=== PATIENT | female | born 1955 | race African-American/Black ===

== ENCOUNTER 2016-10-09 19:04 | Inpatient (IN) ==
[2016-10-09] MEDS ORDERED: SODIUM CHLORIDE 0.9% 1,000 ML IV STA (19:53)
[2016-10-09] MEDS ORDERED: cefTRIAXone 1,000 MG in SODIUM CHLORIDE 0.9% 100 ML IV STA (19:57)
[2016-10-09 20:04] LABS: Hematocrit 34.8 VOL% (35.7-47.0); Hemoglobin 11.6 GM/DL (12.0-16.0); Immature Granulocytes % 0.8 %; Immature Granulocytes Absolute 0.02 #; Lymphocytes # 0.8 10*3/uL (1.4-4.0); Mean Corpuscular HGB Conc 33.3 GM/DL (32-36); Mean Corpuscular Hemoglobin 27 PG (27-34); Mean Corpuscular Volume 80.9 FL (87-102); Mean Platelet Volume 11.3 FL (9.6-12.0); Monocytes # 0.1 10*3/uL (0.11-0.8); Neutrophils # 1.7 10*3/uL (1.4-7.4); Neutrophils % 65.2 % (38.7-73.9); Platelet Count 219 T/CUMM (130-400); White Blood Count 2.6 T/CUMM (4-12)
--- NOTE | 2016-10-09 20:16 | XRay Report ---
XR chest 1V portable Indication: Cough, shortness of breath Comparison: 11 December 2010 Findings: The heart and mediastinum are stable in size and configuration. The pulmonary vascularity is increased with bilateral increased interstitial lung density. Additional increased alveolar densities present most prominent in the right lower lung. No other lung infiltrates, effusions, pneumothorax or other abnormality is demonstrated. Impression: Findings suggest cardiac decompensation. Right lower lung pneumonia cannot be excluded. PROCEDURE INTERPRETED AT [facility] DEPARTMENT OF RADIOLOGY Final Report Signed by: Dr. Ruben Cage
--- NOTE | 2016-10-09 20:17 | XRay Report ---
XR KUB Indication: Abdominal pain Comparison: 02 January 2011 Findings: No free fluid or free air seen. The bowel gas pattern appears within normal limits. No abnormal calcifications are present. No other abnormality is identified. Impression: No evidence of abnormality demonstrated PROCEDURE INTERPRETED AT [facility] DEPARTMENT OF RADIOLOGY Final Report Signed by: Dr. Ruben Cage
[2016-10-09 20:23] LABS: Alanine Aminotransferase 13 U/L (13-56); Alkaline Phosphatase 111 U/L (45-117); Amylase 75 U/L (25-115); Aspartate Amino Transferase 20 U/L (0-37); Bilirubin,Total < 0.39 MG/DL (0.2-1.0); Blood Urea Nitrogen 14 MG/DL (7-18); Free T4 (Free Thyroxine) 0.93 NG/DL (0.76-1.46); Glucose 131 MG/DL (74-106); Magnesium 1.5 MG/DL (1.8-2.4); Potassium 3.8 MMOL/L (3.5-5.1); Sodium 143 MMOL/L (136-145)
[2016-10-09] MEDS ORDERED: SODIUM CHLORIDE 0.9% 100 ML IV ONE (20:38)
[2016-10-09] MEDS ORDERED: cefTRIAXone 1,000 MG VIAL ONE (20:38)
[2016-10-09] MEDS ORDERED: ACETAMINOPHEN 500 MG TABLET PO ONE (21:00)
[2016-10-09 21:07] LABS: Apearance,Urine CLEAR (Clear); Bilirubin,Urine Negative (Negative); Blood, Urine Negative (Negative); Glucose,Urine (UA) 50 mg/dL (Negative); Ketones,Urine Negative (Negative); Mucus,Urine Occasional /LPF (Occasional); Nitrite,Urine Negative (Negative); Protein,Urine Negative; RBC,Urine <1 /HPF (0-4); Squamous Epithelial Cell,Urine Occasional /HPF (0-10); Urine Color Yellow (Yellow); Urine Specific Gravity 1.009 (1.001-1.035); Urine Urobilinogen < 2.0 EU/DL (0.2-1.0); WBC,Urine 1 /HPF (0-6)
[2016-10-09] MEDS ORDERED: ACETAMINOPHEN 500 MG TABLET ONE (21:27)
--- NOTE | 2016-10-09 21:28 | Emergency Department Note ---
Arrival - Arrival Chief Complaint: Abdominal / Flank Pain Stated Complaint: body aches and elevated temps ED Nursing Triage Note: nausea, weakness, fever, abdominal pain Mode of Arrival: Stretcher Limitations: No Limitations Source: Patient, Family Time Seen by Provider: 10/09/16 19:27 - History of Present Illness HPI Narrative: The patient complains of shortness of breath, nausea, weakness, fever, cough and upper abdominal pain since around 130 this afternoon. She denies any chest pain, vomiting or diaphoresis. No nasal drainage or sore throat. She has a history of hypertension, diabetes and hyperthyroidism. No known history of heart problems. No known sick contacts. Allergies/Adverse Reactions: Allergies Allergy/AdvReac Type Severity Reaction Status Date / Time Benzonatate Allergy Intermediate Swelling Verified 05/13/16 06:59 [From [place]] of Lip/Tongue/Throat codeine Allergy Intermediate Swelling Verified 05/13/16 06:59 of Lip/Tongue/Throat amlodipine Allergy Swelling Verified 05/13/16 06:59 of Lip/Tongue/Throat benazepril Allergy Swelling Verified 05/13/16 06:59 of Lip/Tongue/Throat gabapentin [From Neurontin] Allergy Swelling Verified 05/13/16 06:59 of Lip/Tongue/Throat metoclopramide [From Reglan] Allergy Verified 07/22/16 09:12 metronidazole [From Flagyl] Allergy Swelling Verified 05/13/16 06:59 of Lip/Tongue/Throat tramadol [From Ultram] Allergy Swelling Verified 05/13/16 06:59 of Lip/Tongue/Throat Home Medications: Home Medications Medication Instructions Recorded Confirmed Type Atenolol [Atenolol] 1 tablet PO DAILY 09/12/14 10/09/16 History Cetirizine Tab [ZyrTEC TAB] 10 mg PO BID 09/12/14 10/09/16 History Spironolactone [Aldactone] 25 mg PO BID 09/12/14 10/09/16 History sitaGLIPtin [Januvia] 100 mg PO DAILY 09/12/14 10/09/16 History HydrOXYzine PAMOATE CAP [Vistaril 25 mg PO TID PRN 03/17/16 10/09/16 History Cap] Pregabalin [Lyrica] 150 mg PO TID 03/17/16 10/09/16 History Cyanocobalamin (Vitamin B-12) 1,000 mcg PO DAILY 07/22/16 10/09/16 History [Vitamin B-12] Folic Acid Tab 0.4 mg PO DAILY 08/18/16 10/09/16 History Linagliptin [Tradjenta] 5 mg PO QAM 08/18/16 10/09/16 History Potassium Chloride 20 meq PO DAILY 08/18/16 10/09/16 History Amoxicillin Cap/Tab 500 mg PO Q6H 10/09/16 10/09/16 History Celecoxib [Celebrex] 200 mg PO BID 10/09/16 10/09/16 History Cetirizine HCl [Cetirizine Tab] 10 mg PO DAILY 10/09/16 10/09/16 History Esomeprazole Magnesium [Nexium] 40 mg PO DAILY 10/09/16 10/09/16 History Fluoxetine HCl 40 mg PO BID 10/09/16 10/09/16 History Insulin Aspart [NovoLOG FlexPen] 20 unit SUBCUT TID 10/09/16 10/09/16 History Insulin Glargine,Hum.rec.anlog 25 unit SUBCUT QPM 10/09/16 10/09/16 History [Lantus SoloStar] Insulin Glargine,Hum.rec.anlog 45 unit SUBCUT QAM 10/09/16 10/09/16 History [Lantus SoloStar] Levothyroxine Tab [Synthroid Tab] 100 mcg PO QAM 10/09/16 10/09/16 History Multivit-Min/FA/Lycopen/Lutein 1 each PO DAILY 10/09/16 10/09/16 History [Centrum Silver Tablet] Simvastatin 20 mg PO QPM 10/09/16 10/09/16 History Review of System - Review of System Constitutional: Present: fever, weakness Head/Ears/Nose/Throat: Absent: nasal drainage, sore throat Respiratory: Present: cough, respiratory distress. Absent: wheezing Cardiovascular: Present: dyspnea on exertion. Absent: chest pain, palpitations , orthopnea, edema Gastrointestinal: Present: abdominal pain, nausea. Absent: vomiting, diarrhea, constipation Genitourinary female: Absent: dysuria Medical,Surgical,& Family Hx - Medical History Cardio: History of: Hypertension Psychological: History of: Anxiety Disorders, Depression Neurology: History of: Migraine, Peripheral Neuropathy HEENT: History of: Eye Problem (glasses/Cataracts), Dental Problems (Missing Teeth), HEENT Problems (Allergies) Endocrine: History of: Diabetes Mellitus (IDDM), Diabetes Mellitus (NIDDM), Dyslipidemia, Thyroid Disorder Rheumatology: History of;: Rheumatoid Arthritis Respiratory: History of: Respiratory Problems (sob; Flu Vac Nov 2015) No history of: Pneumonia (Hx Pneum Vac) Genitourinary: No history of: Kidney Stones Gastrointestinal: History of: GERD No history of: Polyps Musculoskeletal: History of: Back/Neck Problems (Lower Back Pain Radiating down Rt leg-Dr. Archuleta-Hx Steroid Injections), Degenerative Disk Disease, Musculoskeletal Problems (arthritis; Dr. Corona Jr Injections in Shoulder) Reproductive: No history of: Breast Cancer Other: No history of: Anesthesia Reactions, Anaphylaxis, Cancer - Surgical History Cardiac Surgeries: Patient Denies: Cardiac Catheterization HEENT Surgeries: Surgical HX of: Eye Surgery (03/18/16 Lt Cataract; 05/13/16 Sched for Rt Cataract Dr. Low) Patient denies: Thyroid Surgery, Tonsilectomy & Adenoidectomy Abdominal Surgeries: Surgical HX of: Colonoscopy, EGD Patient denies: Appendectomy, Cholecystectomy Reproductive Surgeries: Surgical HX of;: Gynecologic Surgery, Hysterectomy ( Complete) Orthopedic Surgeries: Surgical HX of;: Orthopedic Surgery (LKS) Patient denies;: Total Hip Replacement, Total Knee Replacement - Family History Family History: Reports;: Family Diabetes - Social History Smoking Status: Never smoker Frequency of Alcohol Use: None Type of Drug Use: None Exam Physical Examination: GENERAL: Alert. No acute distress. HEENT: Normocephalic and atraumatic. There is no nasal drainage. No pharyngeal erythema or exudate. NECK: Normal inspection. Supple. No lymphadenopathy or meningismus. LUNGS: No respiratory distress. Good air movement. Rales and coarse breath sounds bilaterally. Right greater than left. HEART: Regular rate and rhythm. ABDOMEN: Soft, nondistended with normal bowel sounds. Minimal epigastric tenderness without guarding or rebound. BACK: Normal inspection. SKIN: Color normal. Warm and dry. EXTREMITIES: Nontender. Normal range of motion. No pedal edema. NEUROLOGICAL/PSYCHIATRIC: Alert and oriented -3 with normal mood and affect. Cranial nerves normal. No motor or sensory deficit. Vital Signs: Vital Signs Temperature 103.0 F H 10/09/16 19:10 Pulse Rate 105 H 10/09/16 19:31 Respiratory Rate 20 10/09/16 19:31 Blood Pressure 106/58 10/09/16 19:31 O2 Sat by Pulse Oximetry 94 L 10/09/16 19:31 Course Course Narrative: Note: The multiple negatives in the past medical history were not marked by me. They are the result of the triage process, past medical records or other unknown causes. Due to time constraints, these were not all reviewed with the patient and the backslashes were not removed from the chart. They should be ignored. - Reevaluation(s) Reevaluation #1: Patient has remained stable in the ER. Her oxygen saturations remain around 93% . I discussed patient with Dr. Riggins and will admit to Dr. Vasquez. Time: 21:41 Results - Labs CBC & BMP: 10/09/16 19:24 10/09/16 19:24 Lab Results: I have reviewed the patients labs Labs: Laboratory Tests 10/09/16 10/09/16 10/09/16 19:24 19:24 19:53 Lactic Acid 3.0 H Calcium 8.0 L Magnesium 1.5 L Total Bilirubin < 0.39 AST 20 ALT 13 Alkaline Phosphatase 111 B-Natriuretic Peptide 14 Amylase 75 Lipase 150.0 Free T4 0.93 TSH 3rd Generation 2.720 Urine RBC <1 Urine WBC 1 - Impressions KUB shows no acute abnormality. Chest x-ray shows increased density in the right lower lobe consistent with pneumonia. Disposition Clinical Impression: Pneumonia Case discussed with: patient, patient's family Disposition: Still a Patient Condition: Stable Time of Disposition: 21:41
[2016-10-09] MEDS ORDERED: DEXTROSE 50% 25 GM/50 ML VIAL IV PRN (22:33)
[2016-10-09] MEDS ORDERED: PROMETHAZINE 25 MG/1 ML VIAL IM PRN (22:33)
[2016-10-09] MEDS ORDERED: GLUCAGON 1 MG VIAL IM PRN (22:33)
[2016-10-09] MEDS ORDERED: ONDANSETRON 4 MG/2 ML VIAL IV PRN (22:33)
[2016-10-09] MEDS: SODIUM CHLORIDE 0.9% 1,000 ML IV SCH (23:30)
[2016-10-09] MEDS: IBUPROFEN 600 MG TABLET PO PRN (23:42)
[2016-10-10] MEDS: ALBUTEROL/IPRATROPIUM 3 ML NEB RESP TX SCH ×4 (00:38→20:14)
[2016-10-10] MEDS: DOCUSATE SODIUM 100 MG CAPSULE PO SCH ×2 (08:44→20:56)
[2016-10-10] MEDS: PANTOPRAZOLE 40 MG TABLET PO SCH (08:44)
[2016-10-10] MEDS: LEVOFLOXACIN INJ 750 MG in PREMIX 1 EACH IV SCH (08:46)
--- NOTE | 2016-10-10 10:10 | Internal Med History&Physical ---
Assessment and Plan (1) Right lower lobe pneumonia Status: Acute Assessment and plan: 61-year-old female admitted to acute care * Right lower lobe pneumonia. Patient will be started on IV antibiotics and nebulizer treatments. Blood cultures have been done. Her white count was low on admission. Could be a viral pneumonia. Will repeat chest x-ray CBC and BMP in the morning * Diabetes. Will keep her on medications and start her on sliding scale * Hypertension. Blood pressure is stable * No history of CHF. Will decrease her IV fluids to 75 cc an hour and will check a BNP in the morning * Hypothyroidism. Continue current treatment. * Depression. She will be continued on medications. * Discussed with patient. Dr. Vasquez will see the patient in the morning Current Visit: Yes (2) Hypertension Status: Acute Current Visit: Yes (3) Diabetes Status: Acute Current Visit: Yes (4) Chronic back pain Status: Acute Current Visit: Yes (5) Dyslipidemia Status: Acute Current Visit: Yes (6) Anxiety and depression Status: Acute Current Visit: Yes (7) Peripheral neuropathy Status: Acute Current Visit: Yes History of Present Illness Chief complaint: Shortness of breath and fever History of present illness: Ms. Oquendo is a 61 year old female with history of diabetes, hypertension, chronic pain syndrome, depression, hypothyroidism, hyperlipidemia who presented to the emergency room with shortness of breath associated with fever weakness, nausea for last 24 hours. Patient denies any dysuria. She had an injection in her back last week. She denies any chest discomfort or history of heart disease. Her shortness of breath was associated with wheezing. She was coughing up dark phlegm. In the emergency room patient had a temp of 103. She lives at home with her son. She denies any history of smoking or alcohol use. Her blood sugars have been running high. Home Medications Medication Instructions Recorded Confirmed Type Atenolol [Atenolol] 1 tablet PO DAILY 09/12/14 10/09/16 History Cetirizine Tab [ZyrTEC TAB] 10 mg PO BID 09/12/14 10/09/16 History Spironolactone [Aldactone] 25 mg PO BID 09/12/14 10/09/16 History sitaGLIPtin [Januvia] 100 mg PO DAILY 09/12/14 10/09/16 History HydrOXYzine PAMOATE CAP [Vistaril 25 mg PO TID PRN 03/17/16 10/09/16 History Cap] Pregabalin [Lyrica] 150 mg PO TID 03/17/16 10/09/16 History Cyanocobalamin (Vitamin B-12) 1,000 mcg PO DAILY 07/22/16 10/09/16 History [Vitamin B-12] Folic Acid Tab 0.4 mg PO DAILY 08/18/16 10/09/16 History Linagliptin [Tradjenta] 5 mg PO QAM 08/18/16 10/09/16 History Potassium Chloride 20 meq PO DAILY 08/18/16 10/09/16 History Amoxicillin Cap/Tab 500 mg PO Q6H 10/09/16 10/09/16 History Celecoxib [Celebrex] 200 mg PO BID 10/09/16 10/09/16 History Cetirizine HCl [Cetirizine Tab] 10 mg PO DAILY 10/09/16 10/09/16 History Esomeprazole Magnesium [Nexium] 40 mg PO DAILY 10/09/16 10/09/16 History Fluoxetine HCl 40 mg PO BID 10/09/16 10/09/16 History Insulin Aspart [NovoLOG FlexPen] 20 unit SUBCUT TID 10/09/16 10/09/16 History Insulin Glargine,Hum.rec.anlog 25 unit SUBCUT QPM 10/09/16 10/09/16 History [Lantus SoloStar] Insulin Glargine,Hum.rec.anlog 45 unit SUBCUT QAM 10/09/16 10/09/16 History [Lantus SoloStar] Levothyroxine Tab [Synthroid Tab] 100 mcg PO QAM 10/09/16 10/09/16 History Multivit-Min/FA/Lycopen/Lutein 1 each PO DAILY 10/09/16 10/09/16 History [Centrum Silver Tablet] Simvastatin 20 mg PO QPM 10/09/16 10/09/16 History Allergies Allergy/AdvReac Type Severity Reaction Status Date / Time Benzonatate Allergy Intermediate Swelling Verified 05/13/16 06:59 [From [place]] of Lip/Tongue/Throat codeine Allergy Intermediate Swelling Verified 05/13/16 06:59 of Lip/Tongue/Throat amlodipine Allergy Swelling Verified 05/13/16 06:59 of Lip/Tongue/Throat benazepril Allergy Swelling Verified 05/13/16 06:59 of Lip/Tongue/Throat gabapentin [From Neurontin] Allergy Swelling Verified 05/13/16 06:59 of Lip/Tongue/Throat metoclopramide [From Reglan] Allergy Verified 07/22/16 09:12 metronidazole [From Flagyl] Allergy Swelling Verified 05/13/16 06:59 of Lip/Tongue/Throat tramadol [From Ultram] Allergy Swelling Verified 05/13/16 06:59 of Lip/Tongue/Throat Medical,Surgical,& Family Hx - Medical History Cardio: History of: Hypertension Psychological: History of: Anxiety Disorders, Depression Neurology: History of: Migraine, Peripheral Neuropathy No history of: Seizures HEENT: History of: Eye Problem (glasses/Cataracts), Dental Problems (Missing Teeth), HEENT Problems (Allergies) Endocrine: History of: Diabetes Mellitus (NIDDM), Dyslipidemia, Thyroid Disorder Rheumatology: History of;: Rheumatoid Arthritis Respiratory: History of: Respiratory Problems (sob; Flu Vac Nov 2015) No history of: Pneumonia (Hx Pneum Vac) Genitourinary: No history of: Kidney Stones Gastrointestinal: History of: GERD No history of: Polyps Musculoskeletal: History of: Back/Neck Problems (Lower Back Pain Radiating down Rt leg-Dr. Archuleta-Hx Steroid Injections), Degenerative Disk Disease (Chronic low back pain. Followed by Dr. Archuleta), Musculoskeletal Problems (arthritis; Dr. Corona Jr Injections in Shoulder) Reproductive: No history of: Breast Cancer Other: No history of: Anesthesia Reactions, Anaphylaxis, Cancer - Surgical History Cardiac Surgeries: Patient Denies: Cardiac Catheterization HEENT Surgeries: Surgical HX of: Eye Surgery (03/18/16 Lt Cataract; 05/13/[address] Sched for Rt Cataract Dr. Low) Patient denies: Thyroid Surgery, Tonsilectomy & Adenoidectomy Abdominal Surgeries: Surgical HX of: Colonoscopy, EGD Patient denies: Appendectomy, Cholecystectomy Reproductive Surgeries: Surgical HX of;: Gynecologic Surgery, Hysterectomy ( Complete) Orthopedic Surgeries: Surgical HX of;: Orthopedic Surgery (LKS) Patient denies;: Total Hip Replacement, Total Knee Replacement Additional Surgical History: Bilateral carpal tunnel surgery - Family History Family History: Reports;: Family Diabetes - Social History Smoking Status: Never smoker Frequency of Alcohol Use: None Type of Drug Use: None Marital Status: Single Lives With:: Children (Her son) 12 point system: reviewed and no additional remarkable complaints except as stated (As mentioned in HPI) Exam - Constitutional Vitals: Period Temp Pulse Resp BP Sys/Araujo Pulse Ox Last 24 Hr 97.7 F-103.0 F 84-109 18-22 86-129/45-92 90-99 Exam: Examination: GENERAL: NAD. HEENT: PERRLA. EOMI. Mucous membranes are moist. NECK: Neck is supple. No JVD. No carotid bruit. No thyromegaly. CVS: Regular rate and rhythm. S1 and S2 are normal. RESPIRATORY: Decreased air entry especially at the right base with bilateral rales. Few rhonchi are present bilaterally but especially in the right base ABDOMEN: Soft and nontender. Bowel sounds are present. No hepatosplenomegaly. EXT: No edema. Peripheral pulses are present. [employer]FF[employer] CONTROL SPECIALIST: Patient is awake, alert and oriented to time place and person. Cranial nerves II through XII are grossly intact. Moving both upper and lower extremities fairly SKIN: Warm and dry. MSK: No obvious deformity. Results - Labs CBC & BMP: 10/09/16 19:24 10/09/16 19:24 Lab Results: I have reviewed the past 24 hour labs
[2016-10-10] MEDS ORDERED: HydrOXYzine PAMOATE 25 MG CAPSULE PO PRN (10:18)
[2016-10-10] MEDS ORDERED: DEXTROSE 50% 25 GM/50 ML VIAL IV PRN (10:24)
[2016-10-10] MEDS ORDERED: GLUCAGON 1 MG VIAL IM PRN (10:24)
[2016-10-10] MEDS: sitaGLIPtin 100 MG TABLET PO SCH (13:39)
[2016-10-10] MEDS: POTASSIUM CHLORIDE 20 MEQ TABLET PO SCH (13:39)
[2016-10-10] MEDS: ATENOLOL 50 MG TABLET PO SCH (13:39)
[2016-10-10] MEDS: INSULIN GLARGINE 100 UNIT/ML SUBCUT SCH ×2 (13:40→18:50)
[2016-10-10] MEDS: ACETAMINOPHEN 325 MG TABLET PO PRN (13:59)
[2016-10-10] MEDS: INSULIN LISPRO 100 UNIT/ML SUBCUT SCH ×5 (14:02→20:55)
[2016-10-10] MEDS: PREGABALIN 75 MG CAPSULE PO SCH ×2 (15:05→20:55)
[2016-10-10] MEDS: SIMVASTATIN 20 MG TABLET PO SCH (18:50)
[2016-10-10] MEDS: IBUPROFEN 600 MG TABLET PO PRN (20:55)
[2016-10-10] MEDS: FLUoxetine 20 MG CAPSULE PO SCH (20:56)
[2016-10-10] MEDS: SPIRONOLACTONE 25 MG TABLET PO SCH (20:56)
[2016-10-10] MEDS: SODIUM CHLORIDE 0.9% 1,000 ML IV SCH (23:07)
[2016-10-11] MEDS: ALBUTEROL/IPRATROPIUM 3 ML NEB RESP TX SCH ×3 (01:19→12:47)
[2016-10-11 06:41] LABS: Basophils % 0.4 % (0.0-0.8); Hematocrit 27.7 VOL% (35.7-47.0); Immature Granulocytes % 3.8 %; Immature Granulocytes Absolute 0.36 #; Lymphocytes # 1.6 10*3/uL (1.4-4.0); Lymphocytes % 16.5 % (21.3-54.2); Mean Corpuscular HGB Conc 33.9 GM/DL (32-36); Mean Corpuscular Hemoglobin 27 PG (27-34); Mean Corpuscular Volume 79.8 FL (87-102); Mean Platelet Volume 11.4 FL (9.6-12.0); Monocytes # 0.3 10*3/uL (0.11-0.8); Monocytes % 3.4 % (1.7-12.7); Neutrophils # 7.2 10*3/uL (1.4-7.4); Neutrophils % 75.9 % (38.7-73.9); Red Blood Count 3.47 MC/CUMM (3.8-5.5); Red Cell Distribution Width 16.4 % (9.3-17.3)
[2016-10-11 06:43] LABS: Hemoglobin 9.4 GM/DL (12.0-16.0); White Blood Count 9.5 T/CUMM (4-12)
[2016-10-11 06:44] LABS: Platelet Count 285 T/CUMM (130-400)
[2016-10-11 06:56] LABS: Calcium 8.6 MG/DL (8.5-10.1); Osmolality,Calculated 288.8 MOS/KG (273-304); Potassium 4.2 MMOL/L (3.5-5.1)
[2016-10-11 06:59] LABS: Band Neutrophils 9 % (0-10); Hypochromasia 1+; Lymphocytes 17 % (20-55); Metamyelocytes 1 %; Myelocytes 1 %; Segmented Neutrophils 70 % (50-85); Total Cells Counted 100
[2016-10-11 07:00] LABS: Microcytosis 1+
[2016-10-11] MEDS: INSULIN LISPRO 100 UNIT/ML SUBCUT SCH ×7 (08:05→20:50)
[2016-10-11] MEDS: ATENOLOL 50 MG TABLET PO SCH (08:06)
[2016-10-11] MEDS: FLUoxetine 20 MG CAPSULE PO SCH ×2 (08:07→21:08)
[2016-10-11] MEDS: LEVOTHYROXINE 100 MCG TABLET PO SCH (08:07)
[2016-10-11] MEDS: PANTOPRAZOLE 40 MG TABLET PO SCH (08:08)
[2016-10-11] MEDS: PREGABALIN 75 MG CAPSULE PO SCH ×3 (08:08→21:07)
[2016-10-11] MEDS: INSULIN GLARGINE 100 UNIT/ML SUBCUT SCH ×2 (08:08→18:30)
[2016-10-11] MEDS: POTASSIUM CHLORIDE 20 MEQ TABLET PO SCH (08:09)
[2016-10-11] MEDS: DOCUSATE SODIUM 100 MG CAPSULE PO SCH ×2 (08:09→21:08)
[2016-10-11] MEDS: sitaGLIPtin 100 MG TABLET PO SCH (08:09)
[2016-10-11] MEDS: FOLIC ACID 0.4 MG TABLET PO SCH (08:09)
[2016-10-11] MEDS: LEVOFLOXACIN INJ 750 MG in PREMIX 1 EACH IV SCH (08:10)
[2016-10-11] MEDS: SPIRONOLACTONE 25 MG TABLET PO SCH (08:10)
[2016-10-11] MEDS: MULTIVITAMIN (CENTRUM) TABLET PO SCH (08:10)
[2016-10-11] MEDS: CYANOCOBALAMIN 500 MCG TABLET PO SCH (08:11)
[2016-10-11] MEDS: CETIRIZINE 10 MG TABLET PO SCH (08:11)
[2016-10-11] MEDS ORDERED: PANTOPRAZOLE 40 MG TABLET PO SCH (09:00)
--- NOTE | 2016-10-11 10:49 | XRay Report ---
XR chest 2V Indication: Pneumonia Comparison: 09 October 2016 Findings: The heart and mediastinum are similar in size and configuration. The pulmonary vascularity is normal in caliber. There is increasing bilateral lung pulmonary infiltrates especially on the right . Impression: Increasing bilateral pulmonary infiltrates, suggesting worsening pneumonia. PROCEDURE INTERPRETED AT [facility] DEPARTMENT OF RADIOLOGY Final Report Signed by: Dr. Ruben Cage
[2016-10-11] MEDS: SODIUM CHLORIDE 0.9% 1,000 ML IV SCH (12:57)
[2016-10-11] MEDS: SODIUM CHLORIDE 0.45% 1,000 ML IV SCH (14:04)
[2016-10-11] MEDS: IBUPROFEN 600 MG TABLET PO PRN (14:29)
[2016-10-11] MEDS: ACETAMINOPHEN 325 MG TABLET PO PRN (17:04)
--- NOTE | 2016-10-11 18:13 | Internal Med Progress Note ---
Assessment and Plan (1) Right lower lobe pneumonia Status: Acute Current Visit: Yes (2) Hypertension Status: Chronic Current Visit: Yes Qualifiers: Hypertension type: essential hypertension Qualified Code(s): I10 - Essential (primary) hypertension (3) Diabetes Status: Chronic Current Visit: Yes Qualifiers: Diabetes mellitus type: type 2 Diabetes mellitus complication status: with neurologic complications Diabetes mellitus complication detail: with polyneuropathy Diabetes mellitus keno terminal operator insulin use: with keno terminal operator use Qualified Code(s): E11.42 - Type 2 diabetes mellitus with diabetic polyneuropathy; Z79.4 - medical terminologist (current) use of insulin (4) Peripheral neuropathy Status: Chronic Current Visit: Yes Qualifiers: Peripheral neuropathy type: polyneuropathy associated with underlying disease Qualified Code(s): G63 - Polyneuropathy in diseases classified elsewhere Internal Medicine - PN: Subj Interval history: This is a 61 year old female with history of HTN, arthritic changes and chronic pain, DM, peripheral neuropathy, dyslipidemia, who presented to ER with shortness of breath and malaise. She was found to have RLL pneumonia. Chest x- ray shows worsening of infiltrate/consolidation and antibiotics were changed as well as adjustments in breathing treatments. Solumedrol added along with adjustments in insulin coverage. Exam (Progress Note) - Constitutional Vitals: Period Temp Pulse Resp BP Sys/Araujo Pulse Ox Last 24 Hr 97.4 F-101.5 F 72-109 18-26 102-165/47-99 88-99 General appearance: no acute distress - Head Head exam: Present: normocephalic - Eye Eye exam: Present: EOMI - Respiratory Respiratory exam: Present: decreased breath sounds (diminished air flow), prolonged expiratory phase, rhonchi (scattered) - Cardiovascular Cardiovascular exam: Present: regular rate and rhythm - GI/Abdominal GI/Abdominal exam: Present: normal bowel sounds, soft. Absent: tenderness - Extremities Exam Extremities exam: Absent: edema - Neurological Exam Neurological exam: Present: alert, oriented X3 - Psychiatric Psychiatric exam: Present: normal mood - Skin Skin exam: Present: warm, dry Results - Labs CBC & BMP: 10/11/16 05:59 10/11/16 05:59 - Diagnostic Findings Procedure: Chest x-ray: report reviewed by me, image reviewed by me
[2016-10-11] MEDS: SIMVASTATIN 20 MG TABLET PO SCH (18:20)
[2016-10-11] MEDS ORDERED: MAGNESIUM SULF RIDER 2 GM in PREMIX 1 EACH IV ONE (18:28)
[2016-10-11] MEDS ORDERED: ALBUTEROL/IPRATROPIUM 3 ML NEB RESP TX PRN (18:47)
[2016-10-11] MEDS ORDERED: ALBUTEROL/IPRATROPIUM 3 ML NEB RESP TX SCH ×2 (19:00)
[2016-10-11] MEDS ORDERED: AZITHROMYCIN INJ 250 MG in SODIUM CHLORIDE 0.9% 250 ML IV SCH (19:00)
[2016-10-11] MEDS ORDERED: AZITHROMYCIN INJ 500 MG in SODIUM CHLORIDE 0.9% 250 ML IV SCH (19:00)
[2016-10-11] MEDS: BUDESONIDE 0.25 MG/2 ML NEB RESP TX SCH (19:27)
[2016-10-11] MEDS: methylPREDNISolone SOD SUC 40 MG/1 ML VIAL IV SCH (20:14)
[2016-10-11] MEDS: cefTRIAXone 1,000 MG in SODIUM CHLORIDE 0.9% 100 ML IV SCH (20:15)
[2016-10-11] MEDS: MONTELUKAST 10 MG TABLET PO SCH (21:08)
[2016-10-11] MEDS: LEVALBUTEROL 1.25 MG/3 ML NEB RESP TX SCH (23:41)
[2016-10-11] MEDS: IPRATROPIUM 500 MCG/2.5 ML NEB RESP TX SCH (23:41)
[2016-10-12] MEDS: SODIUM CHLORIDE 0.45% 1,000 ML IV SCH ×2 (03:19→20:23)
[2016-10-12] MEDS: methylPREDNISolone SOD SUC 40 MG/1 ML VIAL IV SCH ×3 (03:19→22:44)
[2016-10-12] MEDS: LEVALBUTEROL 1.25 MG/3 ML NEB RESP TX SCH ×6 (03:39→23:31)
[2016-10-12] MEDS: IPRATROPIUM 500 MCG/2.5 ML NEB RESP TX SCH ×6 (03:39→23:31)
[2016-10-12 06:34] LABS: Basophils % 0.2 % (0.0-0.8); Hematocrit 28.4 VOL% (35.7-47.0); Hemoglobin 9.6 GM/DL (12.0-16.0); Immature Granulocytes % 1.4 %; Immature Granulocytes Absolute 0.17 #; Lymphocytes # 0.6 10*3/uL (1.4-4.0); Mean Corpuscular HGB Conc 33.8 GM/DL (32-36); Mean Corpuscular Hemoglobin 27 PG (27-34); Mean Corpuscular Volume 79.8 FL (87-102); Monocytes # 0.3 10*3/uL (0.11-0.8); Monocytes % 2.8 % (1.7-12.7); Neutrophils # 11.1 10*3/uL (1.4-7.4); Neutrophils % 90.6 % (38.7-73.9); Platelet Count 297 T/CUMM (130-400); Red Blood Count 3.56 MC/CUMM (3.8-5.5); Red Cell Distribution Width 16.6 % (9.3-17.3); White Blood Count 12.3 T/CUMM (4-12)
[2016-10-12] MEDS: BUDESONIDE 0.25 MG/2 ML NEB RESP TX SCH ×2 (06:46→20:16)
[2016-10-12 06:56] LABS: Band Neutrophils 1 % (0-10); Lymphocytes 8 % (20-55); Segmented Neutrophils 87 % (50-85); Total Cells Counted 100
[2016-10-12 06:57] LABS: Giant Platelets Few; Hypochromasia 1+; Microcytosis 1+; Ovalocytes Slight; Platelet Estimate Adequate
[2016-10-12 07:15] LABS: Albumin 2.6 G/DL (3.4-5.0); Calcium 8.9 MG/DL (8.5-10.1); Potassium 5.7 MMOL/L (3.5-5.1); Total Protein 6.7 G/DL (6.4-8.3)
--- NOTE | 2016-10-12 09:14 | Pulmonology Consult Note ---
Assessment and Plan (1) Chronic back pain Status: Acute Assessment and plan: The patient is relatively comfortable at present. Current Visit: Yes (2) Right lower lobe pneumonia Status: Acute Assessment and plan: Patient comes in with a right lower lobe pneumonia and fever. She will be covered with broad-spectrum antibiotics. Current Visit: Yes (3) Diabetes Status: Chronic Assessment and plan: Patient's glucose is up a little on steroids. Current Visit: Yes Qualifiers: Diabetes mellitus type: type 2 Diabetes mellitus complication status: with neurologic complications Diabetes mellitus complication detail: with polyneuropathy Diabetes mellitus intermodal dispatcher insulin use: with mcc use Qualified Code(s): E11.42 - Type 2 diabetes mellitus with diabetic polyneuropathy; Z79.4 - intermodal dispatcher (current) use of insulin (4) Hypertension Status: Chronic Assessment and plan: The patient has hypertensive cardiovascular disease. She does have a large heart and will check an echocardiogram. Current Visit: Yes Qualifiers: Hypertension type: essential hypertension Qualified Code(s): I10 - Essential (primary) hypertension History of Present Illness Chief complaint: Shortness of breath History of present illness: Ms. Oquendo is a 61 year old black female that apparently has a long history of hypertension and diabetes along with hypothyroidism, hyperlipidemia, and chronic pain problems. She stated that 3 days ago she started having more shortness of breath with some cough and congestion. She has had some fever and chills. She came into the emergency room where she was felt to have right lower lobe pneumonia. She says she is feeling a little better although her x- ray still very abnormal. She says she has never had any lung problems or asthma. She is a lifetime non-smoker. She does not think she has had any heart problems either. She says she is comfortable at present on oxygen. Home Medications Medication Instructions Recorded Confirmed Type Atenolol [Atenolol] 1 tablet PO DAILY 09/12/14 10/09/16 History Cetirizine Tab [ZyrTEC TAB] 10 mg PO BID 09/12/14 10/09/16 History Spironolactone [Aldactone] 25 mg PO BID 09/12/14 10/09/16 History sitaGLIPtin [Januvia] 100 mg PO DAILY 09/12/14 10/09/16 History HydrOXYzine PAMOATE CAP [Vistaril 25 mg PO TID PRN 03/17/16 10/09/16 History Cap] Pregabalin [Lyrica] 150 mg PO TID 03/17/16 10/09/16 History Cyanocobalamin (Vitamin B-12) 1,000 mcg PO DAILY 07/22/16 10/09/16 History [Vitamin B-12] Folic Acid Tab 0.4 mg PO DAILY 08/18/16 10/09/16 History Linagliptin [Tradjenta] 5 mg PO QAM 08/18/16 10/09/16 History Potassium Chloride 20 meq PO DAILY 08/18/16 10/09/16 History Amoxicillin Cap/Tab 500 mg PO Q6H 10/09/16 10/09/16 History Celecoxib [Celebrex] 200 mg PO BID 10/09/16 10/09/16 History Cetirizine HCl [Cetirizine Tab] 10 mg PO DAILY 10/09/16 10/09/16 History Esomeprazole Magnesium [Nexium] 40 mg PO DAILY 10/09/16 10/09/16 History Fluoxetine HCl 40 mg PO BID 10/09/16 10/09/16 History Insulin Aspart [NovoLOG FlexPen] 20 unit SUBCUT TID 10/09/16 10/09/16 History Insulin Glargine,Hum.rec.anlog 25 unit SUBCUT QPM 10/09/16 10/09/16 History [Lantus SoloStar] Insulin Glargine,Hum.rec.anlog 45 unit SUBCUT QAM 10/09/16 10/09/16 History [Lantus SoloStar] Levothyroxine Tab [Synthroid Tab] 100 mcg PO QAM 10/09/16 10/09/16 History Multivit-Min/FA/Lycopen/Lutein 1 each PO DAILY 10/09/16 10/09/16 History [Centrum Silver Tablet] Simvastatin 20 mg PO QPM 10/09/16 10/09/16 History Allergies Allergy/AdvReac Type Severity Reaction Status Date / Time Benzonatate Allergy Intermediate Swelling Verified 05/13/16 06:59 [From [place]] of Lip/Tongue/Throat codeine Allergy Intermediate Swelling Verified 05/13/16 06:59 of Lip/Tongue/Throat amlodipine Allergy Swelling Verified 05/13/16 06:59 of Lip/Tongue/Throat benazepril Allergy Swelling Verified 05/13/16 06:59 of Lip/Tongue/Throat gabapentin [From Neurontin] Allergy Swelling Verified 05/13/16 06:59 of Lip/Tongue/Throat metoclopramide [From Reglan] Allergy Verified 07/22/16 09:12 metronidazole [From Flagyl] Allergy Swelling Verified 05/13/16 06:59 of Lip/Tongue/Throat tramadol [From Ultram] Allergy Swelling Verified 05/13/16 06:59 of Lip/Tongue/Throat - Constitutional Constitutional: Present: chills, fever(s), weight gain - EENT Eyes: Absent: loss of vision Ears: Absent: decreased hearing Nose, mouth and throat: Absent: dysphagia, headache(s), sinus pressure - Cardiovascular Cardiovascular: Present: dyspnea, orthopnea. Absent: chest pain at rest, edema - Respiratory Respiratory: Present: cough, dyspnea, change in phlegm color. Absent: hemoptysis, pain on inspiration - Gastrointestinal Gastrointestinal: Absent: abdominal pain, change in bowel habits, dysphagia, nausea, vomiting - Genitourinary Genitourinary: Absent: difficulty urinating, dysuria, hematuria, urinary frequency - Musculoskeletal Musculoskeletal: Present: arthralgias, back pain. Absent: muscle weakness - Neurological Neurological: Absent: abnormal speech, focal weakness, paresthesias - Psychiatric Psychiatric: Absent: anxiety Exam (Pulmonay) H&P - Constitutional Vitals: Period Temp Pulse Resp BP Sys/Araujo Pulse Ox Last 24 Hr 97.4 F-101.5 F 66-109 18-24 103-165/66-99 90-99 General appearance: mild distress (She looks comfortable but is mildly tachypneic), over weight - Head Head exam: Present: normal inspection, normocephalic - Eye Eye exam: Present: EOMI. Absent: scleral icterus Pupils: Present: RENNY - ENT ENT exam: Present: normal exam - Neck Neck exam: Present: normal inspection. Absent: lymphadenopathy, thyromegaly - Respiratory Respiratory exam: Present: decreased breath sounds, rales (She has crackles in the bases.). Absent: wheezes - Cardiovascular Cardiovascular exam: Present: regular rate and rhythm. Absent: gallop, systolic murmur - GI/Abdominal GI/Abdominal exam: Present: normal bowel sounds, soft. Absent: organomegaly, tenderness - Extremities Exam Extremities exam: Absent: calf tenderness, edema - Neurological Exam Neurological exam: Present: alert, oriented X3, CN II-XII intact - Psychiatric Psychiatric exam: Present: normal affect, normal mood - Skin Skin exam: Present: warm, dry Medical,Surgical,& Family Hx - Medical History Cardio: History of: Hypertension Psychological: History of: Anxiety Disorders, Depression Neurology: History of: Migraine, Peripheral Neuropathy No history of: Seizures HEENT: History of: Eye Problem (glasses/Cataracts), Dental Problems (Missing Teeth), HEENT Problems (Allergies) Endocrine: History of: Diabetes Mellitus (IDDM), Diabetes Mellitus (NIDDM), Dyslipidemia, Thyroid Disorder Rheumatology: History of;: Rheumatoid Arthritis Respiratory: History of: Respiratory Problems (sob; Flu Vac Nov 2015) No history of: Pneumonia (Hx Pneum Vac) Genitourinary: No history of: Kidney Stones Gastrointestinal: History of: GERD No history of: Polyps Musculoskeletal: History of: Back/Neck Problems (Lower Back Pain Radiating down Rt leg-Dr. Archuleta-Hx Steroid Injections), Degenerative Disk Disease (Chronic low back pain. Followed by Dr. Archuleta), Musculoskeletal Problems (arthritis; Dr. Corona Jr Injections in Shoulder) Reproductive: No history of: Breast Cancer Other: No history of: Anesthesia Reactions, Anaphylaxis, Cancer - Surgical History Cardiac Surgeries: Patient Denies: Cardiac Catheterization HEENT Surgeries: Surgical HX of: Eye Surgery (03/18/16 Lt Cataract; 05/13/16 Sched for Rt Cataract Dr. Low) Patient denies: Thyroid Surgery, Tonsilectomy & Adenoidectomy Abdominal Surgeries: Surgical HX of: Colonoscopy, EGD Patient denies: Appendectomy, Cholecystectomy Reproductive Surgeries: Surgical HX of;: Gynecologic Surgery, Hysterectomy ( Complete) Orthopedic Surgeries: Surgical HX of;: Orthopedic Surgery (LKS) Patient denies;: Total Hip Replacement, Total Knee Replacement - Family History Family History: Reports;: Family Diabetes - Social History Smoking Status: Never smoker Frequency of Alcohol Use: None Type of Drug Use: None Results - Labs CBC & BMP: 10/12/16 06:20 10/12/16 06:20 - Diagnostic Findings Procedure: Chest x-ray: image reviewed by me, report reviewed by me (Chest x- ray shows cardiomegaly with some right lower lobe consolidation. There may be some slight changes in the left lung.)
[2016-10-12] MEDS: AZITHROMYCIN INJ 250 MG in SODIUM CHLORIDE 0.9% 250 ML IV SCH (09:49)
[2016-10-12] MEDS: INSULIN LISPRO 100 UNIT/ML SUBCUT SCH ×8 (09:50→21:53)
[2016-10-12] MEDS: INSULIN GLARGINE 100 UNIT/ML SUBCUT SCH ×2 (09:51→21:52)
[2016-10-12] MEDS: FOLIC ACID 0.4 MG TABLET PO SCH (09:53)
[2016-10-12] MEDS: POTASSIUM CHLORIDE 20 MEQ TABLET PO SCH (09:54)
[2016-10-12] MEDS: DOCUSATE SODIUM 100 MG CAPSULE PO SCH ×2 (09:54→21:50)
[2016-10-12] MEDS: FLUoxetine 20 MG CAPSULE PO SCH ×2 (09:54→21:50)
[2016-10-12] MEDS: CYANOCOBALAMIN 500 MCG TABLET PO SCH (09:54)
[2016-10-12] MEDS: LEVOTHYROXINE 100 MCG TABLET PO SCH (09:54)
[2016-10-12] MEDS: CETIRIZINE 10 MG TABLET PO SCH (09:54)
[2016-10-12] MEDS: SPIRONOLACTONE 25 MG TABLET PO SCH (09:54)
[2016-10-12] MEDS: PREGABALIN 75 MG CAPSULE PO SCH ×3 (09:54→21:50)
[2016-10-12] MEDS: MULTIVITAMIN (CENTRUM) TABLET PO SCH (09:54)
[2016-10-12] MEDS: ATENOLOL 50 MG TABLET PO SCH (09:55)
[2016-10-12] MEDS: sitaGLIPtin 100 MG TABLET PO SCH (09:55)
--- NOTE | 2016-10-12 15:53 | ECHO Report ---
[place] Oquendo Exam Date: 10/12/2016 13:44 Referring Physician: Technologist: wilton Lopez ARDMS, RVT Age: 61 Ht (in): 62 Wt (lb): 218 Gender: F Exam Location: [facility] ([place]) Echo Indications: Essential (primary) hypertension, Shortness of breath, Diabetes, Pneumonia BP: 152 / 83 HR: 98 Rhythm: Sinus Technical Quality: good IMPRESSIONS Left ventricular ejection fraction is estimated at 60 %. Grade I diastolic dysfunction. Tricuspid regurgitation velocities suggest a RVSP of 31 mmHg. Trace pulmonary valve regurgitation. MEASUREMENTS (Male / Female) Normal Values 2D ECHO LV Diastolic Diameter PLAX 3.6 cm 4.2 - 5.9 / 3.9 - 5.3 cm LV Systolic Diameter PLAX 2.2 cm LV Fractional Shortening PLAX 40.3 % IVS Diastolic Thickness 1.3 cm 0.6 - 1.0 / 0.6 - 0.9 cm LVPW Diastolic Thickness 1.3 cm 0.6 - 1.0 / 0.6 - 0.9 cm RV Internal Dim ED PLAX 3.6 cm Aortic Root Diameter 2.3 cm LA Systolic Diameter LX 3.4 cm 3.0 - 4.0 / 2.7 - 3.8 cm DOPPLER TR Peak Velocity 228.0 cm/s TR Peak Gradient 20.8 mmHg FINDINGS Left Ventricle Normal left ventricular cavity size. Mild left ventricular hypertrophy. Left ventricular ejection fraction is estimated at 60 %. Grade I diastolic dysfunction. Right Ventricle The right ventricle is normal in size and function. Right Atrium The right atrium is normal in size. Left Atrium The left atrium is normal in size. Mitral Valve Morphologically normal mitral valve without significant stenosis or prolapse. There is no mitral regurgitation. Aortic Valve Morphologically normal aortic valve without significant sclerosis or stenosis. There is no aortic regurgitation. Tricuspid Valve Morphologically normal tricuspid valve. Trace tricuspid valve regurgitation. Tricuspid regurgitation velocities suggest a RVSP of 31 mmHg. Pulmonic Valve Morphologically normal pulmonic valve. Trace pulmonary valve regurgitation. Pericardium Normal pericardium without effusion. Aorta Normal ascending aorta dimension. Nannette Chaudhari (Electronically Signed) Final Date: 12 October 2016 15:52
--- NOTE | 2016-10-12 21:08 | Internal Med Progress Note ---
Assessment and Plan (1) Right lower lobe pneumonia Status: Acute Current Visit: Yes (2) Hypertension Status: Chronic Current Visit: Yes Qualifiers: Hypertension type: essential hypertension Qualified Code(s): I10 - Essential (primary) hypertension (3) Diabetes Status: Chronic Current Visit: Yes Qualifiers: Diabetes mellitus type: type 2 Diabetes mellitus complication status: with neurologic complications Diabetes mellitus complication detail: with polyneuropathy Diabetes mellitus termination clerk insulin use: with mcfp use Qualified Code(s): E11.42 - Type 2 diabetes mellitus with diabetic polyneuropathy; Z79.4 - termite exterminator (current) use of insulin (4) Peripheral neuropathy Status: Chronic Current Visit: Yes Qualifiers: Peripheral neuropathy type: polyneuropathy associated with underlying disease Qualified Code(s): G63 - Polyneuropathy in diseases classified elsewhere Internal Medicine - PN: Subj Interval history: This is a 61 year old female with history of HTN, arthritic changes and chronic pain, DM, peripheral neuropathy, dyslipidemia, who presented to ER with shortness of breath and malaise. She was found to have RLL pneumonia. Chest x- ray shows worsening of infiltrate/consolidation and antibiotics were changed as well as adjustments in breathing treatments. Solumedrol added along with adjustments in insulin coverage. Doing better. Will order PT for tomorrow to get her out of bed and moving around. Exam (Progress Note) - Constitutional Vitals: Period Temp Pulse Resp BP Sys/Araujo Pulse Ox Last 24 Hr 97.4 F-98.0 F 66-107 18-24 103-165/65-88 91-99 General appearance: no acute distress - Respiratory Respiratory exam: Present: rhonchi (diffuse and improved) - Cardiovascular Cardiovascular exam: Present: regular rate and rhythm - GI/Abdominal GI/Abdominal exam: Present: soft. Absent: tenderness - Extremities Exam Extremities exam: Absent: edema - Neurological Exam Neurological exam: Present: alert, oriented X3 - Psychiatric Psychiatric exam: Present: normal mood - Skin Skin exam: Present: warm, dry Results - Labs CBC & BMP: 10/12/16 06:20 10/12/16 06:20
[2016-10-12] MEDS: MONTELUKAST 10 MG TABLET PO SCH (21:50)
[2016-10-12] MEDS: SIMVASTATIN 20 MG TABLET PO SCH (21:51)
[2016-10-12] MEDS: cefTRIAXone 1,000 MG in SODIUM CHLORIDE 0.9% 100 ML IV SCH (22:44)
[2016-10-13] MEDS: LEVALBUTEROL 1.25 MG/3 ML NEB RESP TX SCH ×5 (03:25→20:09)
[2016-10-13] MEDS: IPRATROPIUM 500 MCG/2.5 ML NEB RESP TX SCH ×5 (03:25→20:09)
[2016-10-13 06:00] LABS: Basophils % 0.1 % (0.0-0.8); Hematocrit 26.8 VOL% (35.7-47.0); Hemoglobin 9.1 GM/DL (12.0-16.0); Immature Granulocytes Absolute 0.67 #; Lymphocytes # 0.9 10*3/uL (1.4-4.0); Lymphocytes % 6.4 % (21.3-54.2); Mean Corpuscular Hemoglobin 27 PG (27-34); Mean Corpuscular Volume 78.4 FL (87-102); Mean Platelet Volume 11.3 FL (9.6-12.0); Monocytes # 0.7 10*3/uL (0.11-0.8); Monocytes % 4.9 % (1.7-12.7); NRBC # 0.02 10*3/uL; Neutrophils # 11.1 10*3/uL (1.4-7.4); Neutrophils % 83.6 % (38.7-73.9); Platelet Count 293 T/CUMM (130-400); Red Blood Count 3.42 MC/CUMM (3.8-5.5); Red Cell Distribution Width 16.4 % (9.3-17.3); White Blood Count 13.4 T/CUMM (4-12)
[2016-10-13 06:28] LABS: Calcium 8.9 MG/DL (8.5-10.1); Osmolality,Calculated 297.8 MOS/KG (273-304); Potassium 5.6 MMOL/L (3.5-5.1)
[2016-10-13 06:34] LABS: Band Neutrophils 1 % (0-10); Hypochromasia 1+; Lymphocytes 5 % (20-55); Microcytosis 1+; Nucleated Red Blood Cells 1 (0-5); Segmented Neutrophils 91 % (50-85); Total Cells Counted 100
[2016-10-13 06:35] LABS: Platelet Estimate Normal
[2016-10-13] MEDS: SODIUM CHLORIDE 0.45% 1,000 ML IV SCH ×3 (06:43→23:04)
[2016-10-13] MEDS: methylPREDNISolone SOD SUC 40 MG/1 ML VIAL IV SCH ×3 (06:43→21:27)
[2016-10-13] MEDS: BUDESONIDE 0.25 MG/2 ML NEB RESP TX SCH ×2 (07:06→20:09)
[2016-10-13] MEDS: INSULIN LISPRO 100 UNIT/ML SUBCUT SCH ×7 (09:00→23:03)
[2016-10-13] MEDS: INSULIN GLARGINE 100 UNIT/ML SUBCUT SCH ×2 (09:01→21:34)
[2016-10-13] MEDS: ATENOLOL 50 MG TABLET PO SCH (09:01)
[2016-10-13] MEDS: CETIRIZINE 10 MG TABLET PO SCH (09:01)
[2016-10-13] MEDS: sitaGLIPtin 100 MG TABLET PO SCH (09:01)
[2016-10-13] MEDS: FLUoxetine 20 MG CAPSULE PO SCH ×2 (09:01→21:27)
[2016-10-13] MEDS: MULTIVITAMIN (CENTRUM) TABLET PO SCH (09:01)
[2016-10-13] MEDS: DOCUSATE SODIUM 100 MG CAPSULE PO SCH ×2 (09:02→21:27)
[2016-10-13] MEDS: FERROUS SULFATE 325 MG TABLET PO SCH (09:02)
[2016-10-13] MEDS: SPIRONOLACTONE 25 MG TABLET PO SCH (09:02)
[2016-10-13] MEDS: LEVOTHYROXINE 100 MCG TABLET PO SCH (09:02)
[2016-10-13] MEDS: CYANOCOBALAMIN 500 MCG TABLET PO SCH (09:02)
[2016-10-13] MEDS: PREGABALIN 75 MG CAPSULE PO SCH ×3 (09:02→21:27)
[2016-10-13] MEDS: FOLIC ACID 0.4 MG TABLET PO SCH (09:02)
[2016-10-13] MEDS: AZITHROMYCIN INJ 250 MG in SODIUM CHLORIDE 0.9% 250 ML IV SCH (09:03)
--- NOTE | 2016-10-13 09:12 | Pulmonology Progress Note ---
Pulmonary - PN: Subj Interval history: Patient is a 61-year-old black lady that has a history of diabetes, hypertension , and obesity. She comes in with shortness of breath cough and congestion. She has been treated for pneumonia. Her chest x-ray is very abnormal. There certainly looks like there may be a component of heart failure. She is not having any fever now and not coughing up any sputum. She says she gets very short of breath just going to the bathroom. She is not really having any chest pain now. Her O2 saturations are okay. Exam (Progress Note) - Constitutional Vitals: Period Temp Pulse Resp BP Sys/Araujo Pulse Ox Last 24 Hr 96.9 F-99.0 F 87-107 18-24 113-165/58-88 89-99 Exam: General appearance: mild distress (She looks comfortable but is mildly tachypneic. She still looks about the same.), over weight - Head Head exam: Present: normal inspection, normocephalic - Eye Eye exam: Present: EOMI. Absent: scleral icterus Pupils: Present: RENNY - ENT ENT exam: Present: normal exam - Neck Neck exam: Present: normal inspection. Absent: lymphadenopathy, thyromegaly - Respiratory Respiratory exam: Present: She has crackles in the bases but no wheezing. She is moving air okay. - Cardiovascular Cardiovascular exam: Present: regular rate and rhythm. Absent: gallop, systolic murmur - GI/Abdominal GI/Abdominal exam: Present: normal bowel sounds, soft. Absent: organomegaly, tenderness - Extremities Exam Extremities exam: Absent: calf tenderness, edema - Neurological Exam Neurological exam: Present: alert, oriented X3, CN II-XII intact - Psychiatric Psychiatric exam: Present: normal affect, normal mood - Skin Skin exam: Present: warm, dry Results - Labs CBC & BMP: 10/13/16 05:45 10/13/16 05:45 Assessment and Plan (1) Chronic back pain Status: Acute Assessment and plan: The patient is relatively comfortable at present. Current Visit: Yes (2) Right lower lobe pneumonia Status: Acute Assessment and plan: Patient comes in with a right lower lobe pneumonia and fever. She will be covered with broad-spectrum antibiotics. She is not very toxic but still gets short of breath easily. Will check a chest x-ray tomorrow. She may need further investigation at some point. Current Visit: Yes (3) Diabetes Status: Chronic Assessment and plan: Patient's glucose is up a little on steroids. Her glucose was 463 this morning. Current Visit: Yes Qualifiers: Diabetes mellitus type: type 2 Diabetes mellitus complication status: with neurologic complications Diabetes mellitus complication detail: with polyneuropathy Diabetes mellitus half-way insulin use: with yoker use Qualified Code(s): E11.42 - Type 2 diabetes mellitus with diabetic polyneuropathy; Z79.4 - long-term (current) use of insulin (4) Hypertension Status: Chronic Assessment and plan: The patient has hypertensive cardiovascular disease. Her echo shows good left ventricular function. Current Visit: Yes Qualifiers: Hypertension type: essential hypertension Qualified Code(s): I10 - Essential (primary) hypertension
[2016-10-13] MEDS: IBUPROFEN 600 MG TABLET PO PRN (12:51)
--- NOTE | 2016-10-13 15:53 | Internal Med Progress Note ---
Assessment and Plan (1) Right lower lobe pneumonia Status: Acute Current Visit: Yes (2) Hypertension Status: Chronic Current Visit: Yes Qualifiers: Hypertension type: essential hypertension Qualified Code(s): I10 - Essential (primary) hypertension (3) Diabetes Status: Chronic Current Visit: Yes Qualifiers: Diabetes mellitus type: type 2 Diabetes mellitus complication status: with neurologic complications Diabetes mellitus complication detail: with polyneuropathy Diabetes mellitus termite control representative insulin use: with termite control representative use Qualified Code(s): E11.42 - Type 2 diabetes mellitus with diabetic polyneuropathy; Z79.4 - equipment operator intermodal yard (current) use of insulin (4) Peripheral neuropathy Status: Chronic Current Visit: Yes Qualifiers: Peripheral neuropathy type: polyneuropathy associated with underlying disease Qualified Code(s): G63 - Polyneuropathy in diseases classified elsewhere Internal Medicine - PN: Subj Interval history: This is a 61 year old female with history of HTN, arthritic changes and chronic pain, DM, peripheral neuropathy, dyslipidemia, who presented to ER with shortness of breath and malaise. She was found to have RLL pneumonia. Chest x- ray shows worsening of infiltrate/consolidation and antibiotics were changed as well as adjustments in breathing treatments. Solumedrol added along with adjustments in insulin coverage. Doing better, but weak. Will adjust Solumedrol. Hyperglycemic surges. Adjusting breathing treatments and Atenolol. She is "jittery" with Xopenex. Repeat chest x-ray in the morning. Exam (Progress Note) - Constitutional Vitals: Period Temp Pulse Resp BP Sys/Araujo Pulse Ox Last 24 Hr 96.9 F-99.0 F 87-104 18-24 113-143/58-74 89-99 Exam: General appearance: no acute distress - Respiratory Respiratory exam: Present: rhonchi (diffuse and improved) improving - Cardiovascular Cardiovascular exam: Present: regular rate and rhythm - GI/Abdominal GI/Abdominal exam: Present: soft. Absent: tenderness - Extremities Exam Extremities exam: Absent: edema - Neurological Exam Neurological exam: Present: alert, oriented X3 - Psychiatric Psychiatric exam: Present: normal mood - Skin Skin exam: Present: warm, dry Results - Labs CBC & BMP: 10/13/16 05:45 10/13/16 05:45
[2016-10-13] MEDS: SIMVASTATIN 20 MG TABLET PO SCH (21:27)
[2016-10-13] MEDS: MONTELUKAST 10 MG TABLET PO SCH (21:27)
[2016-10-13] MEDS: NYSTATIN 500,000 UNIT/5 ML UDCUP SWISH/SWAL SCH (21:27)
[2016-10-13] MEDS: cefTRIAXone 1,000 MG in SODIUM CHLORIDE 0.9% 100 ML IV SCH (21:28)
[2016-10-14] MEDS: LEVALBUTEROL 1.25 MG/3 ML NEB RESP TX SCH ×4 (00:08→19:23)
[2016-10-14] MEDS: IPRATROPIUM 500 MCG/2.5 ML NEB RESP TX SCH ×4 (00:08→19:23)
[2016-10-14] MEDS: SODIUM CHLORIDE 0.45% 1,000 ML IV SCH ×2 (04:41→16:35)
[2016-10-14] MEDS: methylPREDNISolone SOD SUC 40 MG/1 ML VIAL IV SCH ×3 (04:42→21:09)
[2016-10-14 07:02] LABS: Basophils % 0.2 % (0.0-0.8); Hematocrit 27.4 VOL% (35.7-47.0); Hemoglobin 9.6 GM/DL (12.0-16.0); Immature Granulocytes % 13.8 %; Immature Granulocytes Absolute 1.46 #; Lymphocytes # 1.4 10*3/uL (1.4-4.0); Mean Corpuscular Hemoglobin 27 PG (27-34); Mean Corpuscular Volume 77.4 FL (87-102); Mean Platelet Volume 11.1 FL (9.6-12.0); NRBC # 0.03 10*3/uL; Neutrophils # 6.8 10*3/uL (1.4-7.4); Platelet Count 298 T/CUMM (130-400); Red Blood Count 3.54 MC/CUMM (3.8-5.5); Red Cell Distribution Width 16.5 % (9.3-17.3); White Blood Count 10.6 T/CUMM (4-12)
[2016-10-14] MEDS: BUDESONIDE 0.25 MG/2 ML NEB RESP TX SCH ×2 (07:10→19:23)
[2016-10-14 07:24] LABS: Band Neutrophils 4 % (0-10); Hypochromasia 1+; Lymphocytes 15 % (20-55); Nucleated Red Blood Cells 1 (0-5); Ovalocytes Slight; Platelet Estimate Adequate; Segmented Neutrophils 75 % (50-85); Total Cells Counted 100
[2016-10-14 07:25] LABS: Microcytosis 1+
[2016-10-14 07:27] LABS: Calcium 8.9 MG/DL (8.5-10.1); Osmolality,Calculated 293.7 MOS/KG (273-304); Potassium 4.9 MMOL/L (3.5-5.1)
--- NOTE | 2016-10-14 07:41 | XRay Report ---
Exam: XR chest 1V portable Date: 10/14/2016 4:00 AM Indication: Pneumonia Comparison: 10/11/2016 Technical: AP Findings: Cardiomegaly is present. Patchy infiltrates are present in the right base and perihilar regions with some atelectatic change or infiltrate left base also noted. Oxygen tubing is present. No pneumothorax. Mediastinum is unremarkable. Lateral marginal osteophytes are present. Impression: 1. Patchy infiltrates in the right base and left infrahilar region again demonstrated slightly improved in the left base. PROCEDURE INTERPRETED AT [facility] DEPARTMENT OF RADIOLOGY Final Report Signed by: Dr. Hollis Meraz
[2016-10-14] MEDS: PREGABALIN 75 MG CAPSULE PO SCH ×3 (08:17→21:13)
[2016-10-14] MEDS: INSULIN GLARGINE 100 UNIT/ML SUBCUT SCH ×2 (08:17→21:09)
[2016-10-14] MEDS: INSULIN LISPRO 100 UNIT/ML SUBCUT SCH ×7 (08:17→21:10)
[2016-10-14] MEDS: AZITHROMYCIN INJ 250 MG in SODIUM CHLORIDE 0.9% 250 ML IV SCH (08:17)
[2016-10-14] MEDS: sitaGLIPtin 100 MG TABLET PO SCH (08:18)
[2016-10-14] MEDS: FLUoxetine 20 MG CAPSULE PO SCH ×2 (08:18→21:13)
[2016-10-14] MEDS: NYSTATIN 500,000 UNIT/5 ML UDCUP SWISH/SWAL SCH ×4 (08:18→21:13)
[2016-10-14] MEDS: MULTIVITAMIN (CENTRUM) TABLET PO SCH (08:18)
[2016-10-14] MEDS: LEVOTHYROXINE 100 MCG TABLET PO SCH (08:18)
[2016-10-14] MEDS: ATENOLOL 50 MG TABLET PO SCH (08:18)
[2016-10-14] MEDS: CYANOCOBALAMIN 500 MCG TABLET PO SCH (08:18)
[2016-10-14] MEDS: FERROUS SULFATE 325 MG TABLET PO SCH (08:18)
[2016-10-14] MEDS: CETIRIZINE 10 MG TABLET PO SCH (08:18)
[2016-10-14] MEDS: FOLIC ACID 0.4 MG TABLET PO SCH (08:18)
[2016-10-14] MEDS: ACETAMINOPHEN 325 MG TABLET PO PRN (08:23)
[2016-10-14] MEDS: DOCUSATE SODIUM 100 MG CAPSULE PO SCH ×2 (08:33→21:13)
--- NOTE | 2016-10-14 09:22 | Pulmonology Progress Note ---
Pulmonary - PN: Subj Interval history: Patient is a 61-year-old black lady that has a history of diabetes, hypertension , and obesity. She comes in with shortness of breath cough and congestion. She has been treated for pneumonia. Her chest x-ray is very abnormal. There certainly looks like there may be a component of heart failure. She is felt to have a right lung pneumonia also. Today she says she is feeling much better. Her shortness of breath is better and her cough has improved. She is sitting up in doing a little more activity. Overall she feels like she is improving. Exam (Progress Note) - Constitutional Vitals: Period Temp Pulse Resp BP Sys/Araujo Pulse Ox Last 24 Hr 96.8 F-98.3 F 74-104 16-24 119-181/59-83 90-98 Exam: General appearance: mild distress (She looks much more comfortable today and less short of breath.) - Head Head exam: Present: normal inspection, normocephalic - Eye Eye exam: Present: EOMI. Absent: scleral icterus Pupils: Present: RENNY - ENT ENT exam: Present: normal exam - Neck Neck exam: Present: normal inspection. Absent: lymphadenopathy, thyromegaly - Respiratory Respiratory exam: Present: She is moving air fairly well with just very minimal rhonchi now. She has minimal crackles in the bases. - Cardiovascular Cardiovascular exam: Present: regular rate and rhythm. Absent: gallop, systolic murmur - GI/Abdominal GI/Abdominal exam: Present: normal bowel sounds, soft. Absent: organomegaly, tenderness - Extremities Exam Extremities exam: Absent: calf tenderness, edema, she has no signs of phlebitis. - Neurological Exam Neurological exam: Present: alert, oriented X3, CN II-XII intact - Psychiatric Psychiatric exam: Present: normal affect, normal mood - Skin Skin exam: Present: warm, dry Results - Labs CBC & BMP: 10/14/16 06:36 10/14/16 06:36 - Diagnostic Findings Procedure: Chest x-ray: image reviewed by me, report reviewed by me (Chest x- ray looks better. She still has cardiomegaly but the infiltrates look better.) Assessment and Plan (1) Chronic back pain Status: Acute Assessment and plan: The patient is relatively comfortable at present. Current Visit: Yes (2) Right lower lobe pneumonia Status: Acute Assessment and plan: Patient comes in with a right lower lobe pneumonia and fever. She has been getting antibiotics and respiratory therapy and is improving now. She feels like her breathing is much better and her chest x-ray is better. So far nothing has shown up on culture. She will continue present therapy. Current Visit: Yes (3) Diabetes Status: Chronic Assessment and plan: Patient's glucose is up a little on steroids. Her glucose was 310 this morning. Current Visit: Yes Qualifiers: Diabetes mellitus type: type 2 Diabetes mellitus complication status: with neurologic complications Diabetes mellitus complication detail: with polyneuropathy Diabetes mellitus group home insulin use: with terminal gauger use Qualified Code(s): E11.42 - Type 2 diabetes mellitus with diabetic polyneuropathy; Z79.4 - [facility] (current) use of insulin (4) Hypertension Status: Chronic Assessment and plan: The patient has hypertensive cardiovascular disease. Her echo shows good left ventricular function. Current Visit: Yes Qualifiers: Hypertension type: essential hypertension Qualified Code(s): I10 - Essential (primary) hypertension
--- NOTE | 2016-10-14 20:49 | Internal Med Progress Note ---
Assessment and Plan (1) Right lower lobe pneumonia Status: Acute Current Visit: Yes (2) Hypertension Status: Chronic Current Visit: Yes Qualifiers: Hypertension type: essential hypertension Qualified Code(s): I10 - Essential (primary) hypertension (3) Diabetes Status: Chronic Current Visit: Yes Qualifiers: Diabetes mellitus type: type 2 Diabetes mellitus complication status: with neurologic complications Diabetes mellitus complication detail: with polyneuropathy Diabetes mellitus termite control service representative insulin use: with termite control service representative use Qualified Code(s): E11.42 - Type 2 diabetes mellitus with diabetic polyneuropathy; Z79.4 - parts counterman (current) use of insulin (4) Peripheral neuropathy Status: Chronic Current Visit: Yes Qualifiers: Peripheral neuropathy type: polyneuropathy associated with underlying disease Qualified Code(s): G63 - Polyneuropathy in diseases classified elsewhere Internal Medicine - PN: Subj Interval history: This is a 61 year old female with history of HTN, arthritic changes and chronic pain, DM, peripheral neuropathy, dyslipidemia, who presented to ER with shortness of breath and malaise. She was found to have RLL pneumonia. Chest x- ray shows worsening of infiltrate/consolidation and antibiotics were changed as well as adjustments in breathing treatments. Solumedrol added along with adjustments in insulin coverage. Doing better, but weak. Will adjust Solumedrol. Hyperglycemic surges. Adjusting breathing treatments and Atenolol. She is "jittery" with Xopenex. Repeat chest x-ray in the morning. Doing better. She may be discharged over the weekend as she continues to improve. Exam (Progress Note) - Constitutional Vitals: Period Temp Pulse Resp BP Sys/Araujo Pulse Ox Last 24 Hr 96.8 F-98.4 F 74-100 18-20 133-181/63-83 92-99 Exam: General appearance: no acute distress - Respiratory Respiratory exam: Present: clear - Cardiovascular Cardiovascular exam: Present: regular rate and rhythm - GI/Abdominal GI/Abdominal exam: Present: soft. Absent: tenderness - Extremities Exam Extremities exam: Absent: edema - Neurological Exam Neurological exam: Present: alert, oriented X3 - Psychiatric Psychiatric exam: Present: normal mood - Skin Skin exam: Present: warm, dry Results - Labs CBC & BMP: 10/14/16 06:36 10/14/16 06:36
[2016-10-14] MEDS: SIMVASTATIN 20 MG TABLET PO SCH (21:13)
[2016-10-14] MEDS: cefTRIAXone 1,000 MG in SODIUM CHLORIDE 0.9% 100 ML IV SCH (21:13)
[2016-10-14] MEDS: MONTELUKAST 10 MG TABLET PO SCH (21:19)
--- NOTE | 2016-10-14 21:37 | Gastrointestinal Consult Note ---
Assessment and Plan (1) Microcytic anemia Status: Acute Assessment and plan: Patient has a microcytic anemia of unclear etiology. We will check to make sure that there is cancer but her main complaint right now to me is dysphasia and so we will look to see if there is any evidence of upper GI cancer and potentially do Savary dilation similar to the 57 Chadian were used last dilation on 09/17/15. Will definitely check the small bowel for celiac sprue. This patient had a colonoscopy done by Dr. Garcia as recently as 2013 but this was unremarkable for bleeding source. However, the prep was considered poor and therefore may repeat this evaluation with a better prep. Will strongly consider doing this on 18 October after the weekend. We will proceed with upper endoscopy tomorrow as noted below. Some of the anemia certainly due to chronic disease, will check the patient's reticulocyte count and iron studies to confirm this is iron deficiency as opposed to thalassemia or other process. Again I note that her hematocrit as of 07/22/11 was 40.7%. Current Visit: Yes (2) Oropharyngeal dysphagia Status: Acute Assessment and plan: The patient has a history of recurrent difficulties with swallowing. She did not return for her follow-up dilation after being seen in July 14 of this year. We will go ahead and arrange for this now. As mentioned above we will look for evidence of celiac sprue and a potential bleeding source but none was seen on last evaluation. Would definitely keep this patient off of anticoagulation for the present time. Suggest use of Protonix twice daily. Current Visit: Yes (3) GERD (gastroesophageal reflux disease) Status: Acute Assessment and plan: The patient does have some mild reflux symptoms currently being controlled with Protonix as mentioned. Current Visit: Yes (4) Nausea & vomiting Status: Acute Assessment and plan: This appears to be improved with IV pantoprazole. We will continue to watch, especially after dilation is completed. Current Visit: Yes History of Present Illness Chief complaint: Dysphagia and anemia with hematocrit down to 27% and a low MCV of 77 History of present illness: Ms. Oquendo is a 61 year old female who is well known to me from previous follow- up in the clinic--she had been seen in my office as recently as 07/14/16--this is her first occurrence of anemia that I am aware of. The patient's hematocrit was noted to be 40.7 back on 07/22/11 in our computer system. During her hospitalization she is dropped on 10/09/16 from 34.8% down to a elsa of 26.8% as of 10/13/16. She has not noticed any bright red blood per rectum or black tarry bowel movements she has not had any hematemesis or maroon colored stools. She has dysphagia symptoms once again that this is the reason she had presented to me originally. She has long-standing history of oropharyngeal dysphagia requiring dilation in the past going back to Dr. Garcia's time with her. The patient is actually had a esophageal motility study done on 03/27/14 is required multiple dilations in the past usually up to 54 Chadian. The motility evaluation showed some low peristaltic waves in the distal esophagus and Dr. Nelson had been told that he might want to consider doing a Toupet procedure as opposed to a full Richard fundoplication. When I last dilated her on 09/17/15 patient was noted to have her oral pharyngeal ring which was dilated with a slight "" pop and did give her some relief from her dysphagia for a period of time. She did have some mild gastritis in addition and biopsies were positive for Helicobacter pylori which has since been treated with antibiotics. The patient's last colonoscopy was done by Dr. Garcia as recently as 12/24/13. Unfortunately she had a relatively poor prep--he felt that a repeat would not be required until December 2023 (i.e. in 10 years). The patient still has some mild left-sided precordial pain and she typically takes Nexium to control her acidity 30 minutes before supper time. Patient does appear to have a low MCV and this may be consistent with iron deficiency anemia given the hematocrit down to 27.4%. This points to a chronic blood loss. Home Medications Medication Instructions Recorded Confirmed Type Atenolol [Atenolol] 1 tablet PO DAILY 09/12/14 10/09/16 History Cetirizine Tab [ZyrTEC TAB] 10 mg PO BID 09/12/14 10/09/16 History Spironolactone [Aldactone] 25 mg PO BID 09/12/14 10/09/16 History sitaGLIPtin [Januvia] 100 mg PO DAILY 09/12/14 10/09/16 History HydrOXYzine PAMOATE CAP [Vistaril 25 mg PO TID PRN 03/17/16 10/09/16 History Cap] Pregabalin [Lyrica] 150 mg PO TID 03/17/16 10/09/16 History Cyanocobalamin (Vitamin B-12) 1,000 mcg PO DAILY 07/22/16 10/09/16 History [Vitamin B-12] Folic Acid Tab 0.4 mg PO DAILY 08/18/16 10/09/16 History Linagliptin [Tradjenta] 5 mg PO QAM 08/18/16 10/09/16 History Potassium Chloride 20 meq PO DAILY 08/18/16 10/09/16 History Amoxicillin Cap/Tab 500 mg PO Q6H 10/09/16 10/09/16 History Celecoxib [Celebrex] 200 mg PO BID 10/09/16 10/09/16 History Cetirizine HCl [Cetirizine Tab] 10 mg PO DAILY 10/09/16 10/09/16 History Esomeprazole Magnesium [Nexium] 40 mg PO DAILY 10/09/16 10/09/16 History Fluoxetine HCl 40 mg PO BID 10/09/16 10/09/16 History Insulin Aspart [NovoLOG FlexPen] 20 unit SUBCUT TID 10/09/16 10/09/16 History Insulin Glargine,Hum.rec.anlog 25 unit SUBCUT QPM 10/09/16 10/09/16 History [Lantus SoloStar] Insulin Glargine,Hum.rec.anlog 45 unit SUBCUT QAM 10/09/16 10/09/16 History [Lantus SoloStar] Levothyroxine Tab [Synthroid Tab] 100 mcg PO QAM 10/09/16 10/09/16 History Multivit-Min/FA/Lycopen/Lutein 1 each PO DAILY 10/09/16 10/09/16 History [Centrum Silver Tablet] Simvastatin 20 mg PO QPM 10/09/16 10/09/16 History Allergies Allergy/AdvReac Type Severity Reaction Status Date / Time Benzonatate Allergy Intermediate Swelling Verified 05/13/16 06:59 [From [place]] of Lip/Tongue/Throat codeine Allergy Intermediate Swelling Verified 05/13/16 06:59 of Lip/Tongue/Throat amlodipine Allergy Swelling Verified 05/13/16 06:59 of Lip/Tongue/Throat benazepril Allergy Swelling Verified 05/13/16 06:59 of Lip/Tongue/Throat gabapentin [From Neurontin] Allergy Swelling Verified 05/13/16 06:59 of Lip/Tongue/Throat metoclopramide [From Reglan] Allergy Verified 07/22/16 09:12 metronidazole [From Flagyl] Allergy Swelling Verified 05/13/16 06:59 of Lip/Tongue/Throat tramadol [From Ultram] Allergy Swelling Verified 05/13/16 06:59 of Lip/Tongue/Throat Medical,Surgical,& Family Hx - Medical History Cardio: History of: Hypertension Psychological: History of: Anxiety Disorders, Depression Neurology: History of: Migraine, Peripheral Neuropathy No history of: Seizures HEENT: History of: Eye Problem (glasses/Cataracts), Dental Problems (Missing Teeth), HEENT Problems (Allergies) Endocrine: History of: Diabetes Mellitus (IDDM), Diabetes Mellitus (NIDDM), Dyslipidemia, Thyroid Disorder Rheumatology: History of;: Rheumatoid Arthritis Respiratory: History of: Respiratory Problems (sob; Flu Vac Nov 2015) No history of: Pneumonia (Hx Pneum Vac) Genitourinary: No history of: Kidney Stones Gastrointestinal: History of: GERD No history of: Polyps Musculoskeletal: History of: Back/Neck Problems (Lower Back Pain Radiating down Rt leg-Dr. Archuleta-Hx Steroid Injections), Degenerative Disk Disease (Chronic low back pain. Followed by Dr. Archuleta), Musculoskeletal Problems (arthritis; Dr. Corona Jr Injections in Shoulder) Reproductive: No history of: Breast Cancer Other: No history of: Anesthesia Reactions, Anaphylaxis, Cancer - Surgical History Cardiac Surgeries: Patient Denies: Cardiac Catheterization HEENT Surgeries: Surgical HX of: Eye Surgery (03/18/16 Lt Cataract; 05/13/[address] Sched for Rt Cataract Dr. Low) Patient denies: Thyroid Surgery, Tonsilectomy & Adenoidectomy Abdominal Surgeries: Surgical HX of: Colonoscopy, EGD Patient denies: Appendectomy, Cholecystectomy Reproductive Surgeries: Surgical HX of;: Gynecologic Surgery, Hysterectomy ( Complete) Orthopedic Surgeries: Surgical HX of;: Orthopedic Surgery (LKS) Patient denies;: Total Hip Replacement, Total Knee Replacement - Family History Family History: Reports;: Family Diabetes - Social History Smoking Status: Never smoker Frequency of Alcohol Use: None Type of Drug Use: None Review of systems: Constitutional: Denies fever, chills, positive for nausea, without and vomiting Eyes: Denies dry eyes, and scleral icterus HENT: Occasional headaches Cardiovascular: Patient does have some acute chest pain but now claudication Respiratory: Admits to shortness of breath, wheezing, and difficulty breathing, as well as some cough Gastrointestinal: As noted in the HPI Genitourinary: Denies dysuria and hematuria Neurologic: Denies vision loss, and loss of sensation Musculoskeletal: Admits to joint swelling, joint stiffness, and muscular weakness Psychiatric: She does have some depression but no flakita symptoms Heme-Lymph: Denies easy bruising, lymph node enlargement or tenderness, night sweats, excessive bleeding Allergies-immunologic: Denies pruritus and rhinorrhea Exam - Constitutional Vitals: Period Temp Pulse Resp BP Sys/Araujo Pulse Ox Last 24 Hr 96.8 F-98.4 F 74-100 18-20 133-181/63-83 92-99 General appearance: mild distress, over weight - Head Head exam: Present: normocephalic, atraumatic - Eye Eye exam: Present: EOMI Pupils: Present: RENNY - Respiratory Respiratory exam: Present: decreased breath sounds (In the bases), rhonchi, wheezes - Cardiovascular Cardiovascular exam: Present: regular rate and rhythm - GI/Abdominal GI/Abdominal exam: Present: normal bowel sounds, tenderness (Mostly in the epigastric region left upper quadrant greater than right upper quadrant there is a slight diffuse abdominal pain throughout), soft. Absent: distended, guarding, rebound - Back Exam Back exam: Present: normal inspection - Neurological Exam Neurological exam: Present: alert, oriented X3, CN II-XII intact - Psychiatric Psychiatric exam: Present: normal affect, normal mood - Skin Skin exam: Present: warm Results - Labs CBC & BMP: 10/14/16 06:36 10/14/16 06:36
[2016-10-15] MEDS: LEVALBUTEROL 1.25 MG/3 ML NEB RESP TX SCH ×4 (00:44→19:14)
[2016-10-15] MEDS: IPRATROPIUM 500 MCG/2.5 ML NEB RESP TX SCH ×4 (00:44→19:14)
[2016-10-15] MEDS: SODIUM CHLORIDE 0.45% 1,000 ML IV SCH ×4 (02:35→21:40)
[2016-10-15 05:07] LABS: Basophils % 0.4 % (0.0-0.8); Hematocrit 27.9 VOL% (35.7-47.0); Hemoglobin 9.5 GM/DL (12.0-16.0); Immature Granulocytes % 18.5 %; Lymphocytes # 1.8 10*3/uL (1.4-4.0); Lymphocytes % 18.3 % (21.3-54.2); Mean Corpuscular HGB Conc 34.1 GM/DL (32-36); Mean Corpuscular Hemoglobin 26 PG (27-34); Mean Corpuscular Volume 76.9 FL (87-102); Mean Platelet Volume 11.5 FL (9.6-12.0); Monocytes # 1.1 10*3/uL (0.11-0.8); Monocytes % 11.3 % (1.7-12.7); Neutrophils # 5.2 10*3/uL (1.4-7.4); Neutrophils % 51.5 % (38.7-73.9); Platelet Count 321 T/CUMM (130-400); Red Blood Count 3.63 MC/CUMM (3.8-5.5); Red Cell Distribution Width 16.2 % (9.3-17.3)
[2016-10-15 05:08] LABS: Immature Granulocytes Absolute 1.86 #; NRBC # 0.03 10*3/uL
[2016-10-15 05:35] LABS: Calcium 9.1 MG/DL (8.5-10.1); Osmolality,Calculated 291.5 MOS/KG (273-304); Potassium 4.7 MMOL/L (3.5-5.1)
[2016-10-15 05:42] LABS: % Iron Saturation 13.9 % (18-50)
[2016-10-15] MEDS: methylPREDNISolone SOD SUC 40 MG/1 ML VIAL IV SCH ×3 (06:05→20:43)
--- NOTE | 2016-10-15 07:17 | EKG Report ---
Stationary ECG Study [facility] Test Date: 10/15/2016 7:15:53 AM Pat Name: ANDREINA AQUINO Department: Room: 218 Gender: F Cable Installer Repairer: LOLA : 1955 Requested by: Meri Ruiz Order Number: [id number] Reading MD: JESSICA MAZARIEGOS Intervals [place] Rate: 66 P: 65 MI: 153 QRS: 9 QRSD: 83 T: 44 QT: 386 QTc: 399 Interpretive Statements SINUS RHYTHM LEFT ATRIAL ABNORMALITY Electronically Signed On 10-17-16 16:24:32 CDT by JESSICA MAZARIEGOS [email or web address]
[2016-10-15] MEDS: INSULIN LISPRO 100 UNIT/ML SUBCUT SCH ×7 (07:48→20:45)
[2016-10-15] MEDS ORDERED: DEXTROSE 50% 25 GM/50 ML SYRINGE IV PRN (08:00)
--- NOTE | 2016-10-15 08:25 | Operative Note ---
Date of procedure: 10/15/16 Pre-op diagnosis: Dysphagia and anemia requires redilation with upper stricture Post-op diagnosis: other (Distal esophageal stricturing status post dilation to 57 [place] by Savary dilator. This patient has a fair amount of retained fluid in the stomach suspicious for gastroparesis, no clear cause for the patient's bleeding but biopsies taken to rule out celiac sprue as well as recheck after treatment of Helicobacter pylori. She did have evidence of a diffuse gastritis) Procedure: PROCEDURE: Esophagogastroduodenoscopy (EGD) with dilation to 57 [place] by single pass Savary and cold biopsy REFERRING PHYSICIAN: Allyson Vasquez DO INDICATIONS: History of upper esophageal stricturing, new anemia, prior history of Helicobacter pylori the prior H&P was reviewed and interrim changes are as noted: No change from GI consultation yesterday ENDOSCOPIST: Dmitriy Lennon MD ENDOSCOPE: [employer] Video 100 System upper endoscope ASA CLASS: 3 EXAM: CV: regular rate and rhythm respiratory: Clear without wheezes abdominal: active bowel sounds MEDICATION: Per nursing anesthesia protocol, see their notes PROCEDURE: After discussion of the potential risks and benefits of upper endoscopy, the informed consent was obtained. The patient was then placed in the left lateral decubitus position where sedation was achieved as noted above. Esophageal intubation was performed without difficulty, and the endoscope was advanced through the esophagus, stomach and duodenum. A slow withdrawal was then performed with retroflexion in the stomach for careful inspection of the incisura angularis, fundus and cardia. The scope was then returned to a neutral position and withdrawn through the esophagus. The patient tolerated the procedure well and without complication. BIOPSIES: Gastric antrum/body, duodenum PHOTOGRAPHS: Obtained FINDINGS: Hypopharynx and Larynx: Normal Esohagoscopy Upper and middle thirds: Tortuous but otherwise normal Lower third tortuous but otherwise normal Esophogastric junctions: Patient was noted to have a fibrous ring/ stricture in the distal esophagus, this was dilated to 57 [place] by Savary dilator over wire, minimal force required, some heme noted from the stomach Gastroscopy: Cardia/Fundus: Retained fluid in this patient's stomach mild diffuse gastritis Body: Mild diffuse gastritis, biopsied for Helicobacter pylori Antrum and pylorus mild diffuse gastritis, biopsied, wire advanced into the antrum at the end of the case to facilitate dilation Duodenoscopy: Bulb normal-appearing, biopsied for sprue Second and third portions: Normal-appearing, biopsied for sprue given anemia IMPRESSION: Distal esophageal stricturing status post dilation to 57 [place] by Savary dilator. This patient has a fair amount of retained fluid in the stomach suspicious for gastroparesis, no clear cause for the patient's bleeding but biopsies taken to rule out celiac sprue as well as recheck after treatment of Helicobacter pylori. She did have evidence of a diffuse gastritis RECOMMENDATIONS: Follow up for biopsy results in 1-2 weeks by phone [phone] Continue anti-gastroesophageal reflux measures (avoid carbonated and acidic beverages, avoid eating within 2 hours of bedtime, avoid tight fitting clothing , and elevate the front bed posts 6 inches prior to sleeping. Observe swallowing status post dilation Obtain gastric emptying study tomorrow Follow the patient's hematocrit over the weekend we can certainly consider doing a colonoscopy on Tuesday if the patient's anemia continues to be prominent. This repeat colonoscopy could also be done as an outpatient. Resume diet until Tuesday. Dmitriy Lennon MD COPY TO: Allyson Vasquez DO Anesthesia: MAC Surgeon / Physician: Dmitriy Lennon Estimated blood loss: minimal Specimens: other (Gastric antrum/body, duodenum) Condition: stable Disposition: post procedure unit (G.I. Suite) Results - Labs CBC & BMP: 10/15/16 04:29 10/15/16 04:29 Discharge Plan - Discharge Medications No Action Spironolactone [Aldactone] 25 mg PO BID sitaGLIPtin [Januvia] 100 mg PO DAILY Cetirizine Tab [ZyrTEC TAB] 10 mg PO BID Atenolol [Atenolol] 1 tablet PO DAILY HydrOXYzine PAMOATE CAP [Vistaril Cap] 25 mg PO TID PRN PRN Reason: Anxiety Linagliptin [Tradjenta] 5 mg PO QAM Potassium Chloride 20 meq PO DAILY Folic Acid Tab 0.4 mg PO DAILY Insulin Aspart [NovoLOG FlexPen] 20 unit SUBCUT TID Levothyroxine Tab [Synthroid Tab] 100 mcg PO QAM Insulin Glargine,Hum.rec.anlog [Lantus SoloStar] 25 unit SUBCUT QPM Fluoxetine HCl 40 mg PO BID Cetirizine HCl [Cetirizine Tab] 10 mg PO DAILY Multivit-Min/FA/Lycopen/Lutein [Centrum Silver Tablet] 1 each PO DAILY Simvastatin 20 mg PO QPM Pregabalin [Lyrica] 150 mg PO TID Cyanocobalamin (Vitamin B-12) [Vitamin B-12] 1,000 mcg PO DAILY Insulin Glargine,Hum.rec.anlog [Lantus SoloStar] 45 unit SUBCUT QAM Amoxicillin Cap/Tab 500 mg PO Q6H Esomeprazole Magnesium [Nexium] 40 mg PO DAILY Celecoxib [Celebrex] 200 mg PO BID - Follow Up or Referral - Forms/Instructions
[2016-10-15] MEDS ORDERED: DEXTROSE 50% 25 GM/50 ML VIAL IV PRN (08:27)
--- NOTE | 2016-10-15 08:31 | Gastrointestinal Progress Note ---
Assessment and Plan (1) Microcytic anemia Status: Acute Assessment and plan: Patient has a microcytic anemia of unclear etiology. We will check to make sure that there is cancer but her main complaint right now to me is dysphasia and so we will look to see if there is any evidence of upper GI cancer and potentially do Savary dilation similar to the 57 [place] were used last dilation on 09/17/15. Will definitely check the small bowel for celiac sprue. This patient had a colonoscopy done by Dr. Garcia as recently as 2013 but this was unremarkable for bleeding source. However, the prep was considered poor and therefore may repeat this evaluation with a better prep. Will strongly consider doing this on 18 October after the weekend. We will proceed with upper endoscopy tomorrow as noted below. Some of the anemia certainly due to chronic disease, will check the patient's reticulocyte count and iron studies to confirm this is iron deficiency as opposed to thalassemia or other process. Again I note that her hematocrit as of 07/22/11 was 40.7%. 10/15/16--the patient's upper endoscopy demonstrated the following: Distal esophageal stricturing status post dilation to 57 [place]ian by Savary dilator. This patient has a fair amount of retained fluid in the stomach suspicious for gastroparesis, no clear cause for the patient's bleeding but biopsies taken to rule out celiac sprue as well as recheck after treatment of Helicobacter pylori. She did have evidence of a diffuse gastritis. I think we need to get a gastric emptying study done tomorrow to establish that this patient has gastroparesis or not given her diabetes. This will likely be an ongoing problem for her may be adding to her stricturing. I do not see a source for the patient's bleeding, will watch her over the weekend and likely do a colonoscopy again given the acute blood loss on Tuesday since her last colonoscopy had a poor prep. We should be I will see if there is any AVMs present. Current Visit: Yes (2) Oropharyngeal dysphagia Status: Acute Assessment and plan: The patient has a history of recurrent difficulties with swallowing. She did not return for her follow-up dilation after being seen in July 14 of this year. We will go ahead and arrange for this now. As mentioned above we will look for evidence of celiac sprue and a potential bleeding source but none was seen on last evaluation. Would definitely keep this patient off of anticoagulation for the present time. Suggest use of Protonix twice daily. 10/15/16--patient was dilated to 57 [place]ian by single pass Savary and will observe and see if this helps out with her swallowing, interim diet written. Current Visit: Yes (3) GERD (gastroesophageal reflux disease) Status: Acute Assessment and plan: The patient does have some mild reflux symptoms currently being controlled with Protonix as mentioned. 10/15/16--patient is being treated with Protonix at present. No significant element of esophagitis but the patient does have a stricture that was dilated. Current Visit: Yes (4) Nausea & vomiting Status: Acute Assessment and plan: This appears to be improved with IV pantoprazole. We will continue to watch, especially after dilation is completed. 10/15/16--Again the patient remains on pantoprazole, no further nausea vomiting yet. We will check her for gastroparesis tomorrow. Current Visit: Yes Gastroenterology - PN: Subj Interval history: Patient doing well, her blood count is 27.9 which is stable. She is being seen for anemia. She underwent her upper endoscopy with dilation this morning. Exam (Progress Note) - Constitutional Vitals: Period Temp Pulse Resp BP Sys/Araujo Pulse Ox Last 24 Hr 97.2 F-98.4 F 74-91 16-22 132-190/70-114 92-98 - Head Head exam: Present: normocephalic - Eye Eye exam: Present: EOMI - Respiratory Respiratory exam: Present: clear to auscultation bilaterally - Cardiovascular Cardiovascular exam: Present: regular rate and rhythm - GI/Abdominal GI/Abdominal exam: Present: normal bowel sounds, soft. Absent: distended, tenderness - Extremities Exam Extremities exam: Absent: edema - Neurological Exam Neurological exam: Present: alert - Psychiatric Psychiatric exam: Present: normal affect, normal mood - Skin Skin exam: Present: warm Results - Labs CBC & BMP: 10/15/16 04:29 10/15/16 04:29
--- NOTE | 2016-10-15 08:57 | Anesthesia Post-Op ---
Anesthesia Post OP - Post Ansesthetic Evaluation Patient seen in post op: Yes Resp: within normal limits CV: within normal limits Mental: within normal limits Temp: within normal limits Itxs-Qp-[id number]: within normal limits Nausea and Vomiting: within normal limits Pain: within normal limits
[2016-10-15] MEDS: MULTIVITAMIN (CENTRUM) TABLET PO SCH (10:15)
[2016-10-15] MEDS: FERROUS SULFATE 325 MG TABLET PO SCH ×2 (10:16→20:44)
[2016-10-15] MEDS: FOLIC ACID 0.4 MG TABLET PO SCH (10:16)
[2016-10-15] MEDS: sitaGLIPtin 100 MG TABLET PO SCH (10:16)
[2016-10-15] MEDS: DOCUSATE SODIUM 100 MG CAPSULE PO SCH ×2 (10:16→20:45)
[2016-10-15] MEDS: PREGABALIN 75 MG CAPSULE PO SCH ×3 (10:17→20:45)
[2016-10-15] MEDS: INSULIN GLARGINE 100 UNIT/ML SUBCUT SCH ×2 (10:17→20:45)
[2016-10-15] MEDS: FLUoxetine 20 MG CAPSULE PO SCH ×2 (10:18→20:44)
[2016-10-15] MEDS: NYSTATIN 500,000 UNIT/5 ML UDCUP SWISH/SWAL SCH ×4 (10:18→20:43)
[2016-10-15] MEDS: LEVOTHYROXINE 100 MCG TABLET PO SCH (10:19)
[2016-10-15] MEDS: ATENOLOL 50 MG TABLET PO SCH (10:19)
[2016-10-15] MEDS: CYANOCOBALAMIN 500 MCG TABLET PO SCH (10:20)
[2016-10-15] MEDS: AZITHROMYCIN INJ 250 MG in SODIUM CHLORIDE 0.9% 250 ML IV SCH (10:20)
[2016-10-15] MEDS: CETIRIZINE 10 MG TABLET PO SCH (10:21)
[2016-10-15] MEDS: BUDESONIDE 0.25 MG/2 ML NEB RESP TX SCH ×2 (11:33→19:14)
--- NOTE | 2016-10-15 11:54 | Pulmonology Progress Note ---
Pulmonary - PN: Subj Interval history: Patient is a 61-year-old black lady that has a history of diabetes, hypertension , and obesity. She comes in with shortness of breath cough and congestion. She has been treated for pneumonia. Her chest x-ray is very abnormal. There certainly looks like there may be a component of heart failure. She is felt to have a right lung pneumonia also. Overall her breathing is been doing much better. Today she had an EGD and dilatation. She tolerated this fairly well. She is still coughing a little bit but her shortness of breath has improved. She is getting IV antibiotics and is fairly stable. Exam (Progress Note) - Constitutional Vitals: Period Temp Pulse Resp BP Sys/Araujo Pulse Ox Last 24 Hr 97.2 F-98.4 F 65-91 16-22 132-190/66-114 92-99 Exam: General appearance: no distress (She is sitting up in a chair and looks comfortable) - Head Head exam: Present: normal inspection, normocephalic - Eye Eye exam: Present: EOMI. Absent: scleral icterus Pupils: Present: RENNY - ENT ENT exam: Present: normal exam - Neck Neck exam: Present: normal inspection. Absent: lymphadenopathy, thyromegaly - Respiratory Respiratory exam: Present: She is moving air fairly well with just very minimal rhonchi now. She has minimal crackles in the bases. She is breathing comfortably. - Cardiovascular Cardiovascular exam: Present: regular rate and rhythm. Absent: gallop, systolic murmur - GI/Abdominal GI/Abdominal exam: Present: normal bowel sounds, soft. Absent: organomegaly, tenderness - Extremities Exam Extremities exam: Absent: calf tenderness, edema, she has no signs of phlebitis. - Neurological Exam Neurological exam: Present: alert, oriented X3, CN II-XII intact - Psychiatric Psychiatric exam: Present: normal affect, normal mood - Skin Skin exam: Present: warm, dry Results - Labs CBC & BMP: 10/15/16 04:29 10/15/16 04:29 Assessment and Plan (1) Chronic back pain Status: Acute Assessment and plan: The patient is relatively comfortable at present. Current Visit: Yes (2) Right lower lobe pneumonia Status: Acute Assessment and plan: Patient comes in with a right lower lobe pneumonia and fever. She has been getting antibiotics and respiratory therapy and is improving now. She feels like her breathing is much better and her chest x-ray is better. She is tolerating antibiotics well. She continues to improve. Current Visit: Yes (3) Diabetes Status: Chronic Assessment and plan: Patient's glucose is up a little on steroids. Her glucose was 303 this morning. Current Visit: Yes Qualifiers: Diabetes mellitus type: type 2 Diabetes mellitus complication status: with neurologic complications Diabetes mellitus complication detail: with polyneuropathy Diabetes mellitus emt intermediate insulin use: with emt intermediate use Qualified Code(s): E11.42 - Type 2 diabetes mellitus with diabetic polyneuropathy; Z79.4 - penitentiary (current) use of insulin (4) Hypertension Status: Chronic Assessment and plan: The patient has hypertensive cardiovascular disease. Her echo shows good left ventricular function. She appears to be hemodynamically stable. Current Visit: Yes Qualifiers: Hypertension type: essential hypertension Qualified Code(s): I10 - Essential (primary) hypertension (5) GERD (gastroesophageal reflux disease) Status: Acute Assessment and plan: She had an EGD today with dilatation. She is getting a gastric emptying study. Current Visit: Yes
[2016-10-15] MEDS ORDERED: PROPOFOL 200 MG/20 ML VIAL IV ONE (18:11)
[2016-10-15] MEDS ORDERED: LIDOCAINE 1% 5 ML VIAL ONE (18:11)
--- NOTE | 2016-10-15 19:31 | Internal Med Progress Note ---
Assessment and Plan (1) Right lower lobe pneumonia Status: Acute Current Visit: Yes (2) Hypertension Status: Chronic Current Visit: Yes Qualifiers: Hypertension type: essential hypertension Qualified Code(s): I10 - Essential (primary) hypertension (3) Diabetes Status: Chronic Current Visit: Yes Qualifiers: Diabetes mellitus type: type 2 Diabetes mellitus complication status: with neurologic complications Diabetes mellitus complication detail: with polyneuropathy Diabetes mellitus local company intermodal truck driver insulin use: with local company intermodal truck driver use Qualified Code(s): E11.42 - Type 2 diabetes mellitus with diabetic polyneuropathy; Z79.4 - technician terminal and repeater (current) use of insulin (4) Peripheral neuropathy Status: Chronic Current Visit: Yes Qualifiers: Peripheral neuropathy type: polyneuropathy associated with underlying disease Qualified Code(s): G63 - Polyneuropathy in diseases classified elsewhere Internal Medicine - PN: Subj Interval history: This is a 61 year old female with history of HTN, arthritic changes and chronic pain, DM, peripheral neuropathy, dyslipidemia, who presented to ER with shortness of breath and malaise. She was found to have RLL pneumonia. Chest x- ray shows worsening of infiltrate/consolidation and antibiotics were changed as well as adjustments in breathing treatments. Solumedrol added along with adjustments in insulin coverage. Doing better, but weak. Will adjust Solumedrol. Hyperglycemic surges. Adjusting breathing treatments and Atenolol. She is "jittery" with Xopenex. Repeat chest x-ray in the morning. Doing better. She may be discharged over the weekend as she continues to improve. Chest x-ray improved. ECHO shows normal LVEF and mild diastolic dysfunction; no pulmonary hypertension. She is steadily improving, but is still feeling weak. EGD today uncovered possible gastric delay. Will have gastric emptying study tomorrow. Exam (Progress Note) - Constitutional Vitals: Period Temp Pulse Resp BP Sys/Araujo Pulse Ox Last 24 Hr 97.2 F-98.1 F 65-91 16-22 121-190/63-114 92-100 Exam: General appearance: no acute distress - Respiratory Respiratory exam: Present: clear; rhonchi resolved - Cardiovascular Cardiovascular exam: Present: regular rate and rhythm - GI/Abdominal GI/Abdominal exam: Present: soft. Absent: tenderness - Extremities Exam Extremities exam: Absent: edema - Neurological Exam Neurological exam: Present: alert, oriented X3 - Psychiatric Psychiatric exam: Present: normal mood - Skin Skin exam: Present: warm, dry Results - Labs CBC & BMP: 10/15/16 04:29 10/15/16 04:29
[2016-10-15] MEDS: cefTRIAXone 1,000 MG in SODIUM CHLORIDE 0.9% 100 ML IV SCH (20:44)
[2016-10-15] MEDS: SIMVASTATIN 20 MG TABLET PO SCH (20:44)
[2016-10-15] MEDS: MONTELUKAST 10 MG TABLET PO SCH (20:45)
[2016-10-16] MEDS: LEVALBUTEROL 1.25 MG/3 ML NEB RESP TX SCH ×4 (00:04→20:47)
[2016-10-16] MEDS: IPRATROPIUM 500 MCG/2.5 ML NEB RESP TX SCH ×4 (00:04→20:47)
[2016-10-16 02:44] LABS: Basophils % 0.2 % (0.0-0.8); Hematocrit 26.9 VOL% (35.7-47.0); Hemoglobin 9.3 GM/DL (12.0-16.0); Immature Granulocytes % 17.4 %; Immature Granulocytes Absolute 1.85 #; Lymphocytes # 1.8 10*3/uL (1.4-4.0); Lymphocytes % 17.2 % (21.3-54.2); Mean Corpuscular HGB Conc 34.6 GM/DL (32-36); Mean Corpuscular Hemoglobin 27 PG (27-34); Mean Corpuscular Volume 77.5 FL (87-102); Mean Platelet Volume 11.2 FL (9.6-12.0); Monocytes % 9.6 % (1.7-12.7); NRBC # 0.04 10*3/uL; Neutrophils # 5.9 10*3/uL (1.4-7.4); Neutrophils % 55.6 % (38.7-73.9); Platelet Count 292 T/CUMM (130-400); Red Blood Count 3.47 MC/CUMM (3.8-5.5); Red Cell Distribution Width 16.5 % (9.3-17.3); White Blood Count 10.6 T/CUMM (4-12)
[2016-10-16 03:21] LABS: Calcium 8.6 MG/DL (8.5-10.1); Osmolality,Calculated 287.5 MOS/KG (273-304); Potassium 4.9 MMOL/L (3.5-5.1)
[2016-10-16 04:14] LABS: Band Neutrophils 1 % (0-10); Lymphocytes 20 % (20-55); Myelocytes 1 %; Segmented Neutrophils 66 % (50-85)
[2016-10-16 04:16] LABS: Hypochromasia 1+; Platelet Estimate Normal; Polychromasia Few; Target Cells 1+
[2016-10-16 04:18] LABS: Total Cells Counted 100
[2016-10-16] MEDS: methylPREDNISolone SOD SUC 40 MG/1 ML VIAL IV SCH ×3 (05:51→20:33)
[2016-10-16] MEDS: BUDESONIDE 0.25 MG/2 ML NEB RESP TX SCH ×2 (06:52→20:47)
--- NOTE | 2016-10-16 07:12 | Family Practice Progress Note ---
Family Practice - PN: Subj Interval history: Patient states she is feeling much better this morning still has a bit of a cough. She says her wheezing is markedly improved from admission. She had bilateral patchy infiltrates on chest x-ray. Her weight is up up kilogram from yesterday. Exam (Progress Note) - Constitutional Vitals: Period Temp Pulse Resp BP Sys/Araujo Pulse Ox Last 24 Hr 96.9 F-98.1 F 65-90 16-22 121-190/63-114 92-100 Exam: Objective a pleasant black female is awake alert and able to give good history. She has no dyspnea at rest. Cardiovascular: Heart rates regular I hear no murmurs or gallops. Respiratory: Patient has scattered wheezes bilaterally. Abdomen: Abdomen soft and nontender to palpation. Extremities: There is no calf swelling or tenderness. We will place her on Lovenox. Results - Labs CBC & BMP: 10/16/16 Unknown 10/16/16 02:34 Lab Results: I have reviewed the past 24 hour labs Assessment and Plan (1) Pneumonia Status: Acute Assessment and plan: 10/16/2016: Patient is improving clinically. We will continue present IV antibiotic therapy. Current Visit: Yes
[2016-10-16] MEDS: INSULIN LISPRO 100 UNIT/ML SUBCUT SCH ×7 (07:32→20:38)
--- NOTE | 2016-10-16 07:57 | Gastrointestinal Progress Note ---
Assessment and Plan (1) Microcytic anemia Status: Acute Assessment and plan: Patient has a microcytic anemia of unclear etiology. We will check to make sure that there is cancer but her main complaint right now to me is dysphasia and so we will look to see if there is any evidence of upper GI cancer and potentially do Savary dilation similar to the [address] [place] were used last dilation on 09/17/15. Will definitely check the small bowel for celiac sprue. This patient had a colonoscopy done by Dr. Garcia as recently as 2013 but this was unremarkable for bleeding source. However, the prep was considered poor and therefore may repeat this evaluation with a better prep. Will strongly consider doing this on 18 October after the weekend. We will proceed with upper endoscopy tomorrow as noted below. Some of the anemia certainly due to chronic disease, will check the patient's reticulocyte count and iron studies to confirm this is iron deficiency as opposed to thalassemia or other process. Again I note that her hematocrit as of 07/22/11 was 40.7%. 10/15/16--the patient's upper endoscopy demonstrated the following: Distal esophageal stricturing status post dilation to 57 [place] by Savary dilator. This patient has a fair amount of retained fluid in the stomach suspicious for gastroparesis, no clear cause for the patient's bleeding but biopsies taken to rule out celiac sprue as well as recheck after treatment of Helicobacter pylori. She did have evidence of a diffuse gastritis. I think we need to get a gastric emptying study done tomorrow to establish that this patient has gastroparesis or not given her diabetes. This will likely be an ongoing problem for her may be adding to her stricturing. I do not see a source for the patient's bleeding, will watch her over the weekend and likely do a colonoscopy again given the acute blood loss on Tuesday since her last colonoscopy had a poor prep. We should be I will see if there is any AVMs present. 10/16/16--Gastric emptying study is about to be done this morning. Not much findings on the upper endoscopy, the patient did get some relief from the dilation, will go ahead and feed her today a regular diet with clear liquids that are going to start tomorrow for an anticipated colonoscopy on Tuesday morning Current Visit: Yes (2) Oropharyngeal dysphagia Status: Acute Assessment and plan: The patient has a history of recurrent difficulties with swallowing. She did not return for her follow-up dilation after being seen in July 14 of this year. We will go ahead and arrange for this now. As mentioned above we will look for evidence of celiac sprue and a potential bleeding source but none was seen on last evaluation. Would definitely keep this patient off of anticoagulation for the present time. Suggest use of Protonix twice daily. 10/15/16--patient was dilated to [address] [place] by single pass Savary and will observe and see if this helps out with her swallowing, interim diet written. 10/16/16--Doing better post dilation. Current Visit: Yes (3) GERD (gastroesophageal reflux disease) Status: Acute Assessment and plan: The patient does have some mild reflux symptoms currently being controlled with Protonix as mentioned. 10/15/16--patient is being treated with Protonix at present. No significant element of esophagitis but the patient does have a stricture that was dilated. 10/16/16--Patient does have some mild reflux. This is an ongoing problem. She is on Protonix. Rechecking to see if there is gastroparesis. Current Visit: Yes (4) Nausea & vomiting Status: Acute Assessment and plan: This appears to be improved with IV pantoprazole. We will continue to watch, especially after dilation is completed. 10/15/16--Again the patient remains on pantoprazole, no further nausea vomiting yet. We will check her for gastroparesis tomorrow. 10/16/16--Improved. Current Visit: Yes Gastroenterology - PN: Subj Interval history: No new complaints, patient feels better although her throat is slightly sore from the dilation. She has some mild epigastric pain. She is n.p.o. for her upcoming gastric emptying study this morning. Exam (Progress Note) - Constitutional Vitals: Period Temp Pulse Resp BP Sys/Araujo Pulse Ox Last 24 Hr 96.9 F-98.1 F 65-90 16-22 121-190/63-114 92-100 General appearance: no acute distress - Head Head exam: Present: normocephalic, atraumatic - Eye Eye exam: Present: EOMI Pupils: Present: RENNY - Respiratory Respiratory exam: Present: clear to auscultation bilaterally. Absent: rhonchi, stridor, wheezes - Cardiovascular Cardiovascular exam: Present: regular rate and rhythm - GI/Abdominal GI/Abdominal exam: Present: normal bowel sounds, tenderness (Mild tenderness to palpation epigastric region), soft. Absent: distended, guarding, rebound - Neurological Exam Neurological exam: Present: alert, oriented X3, CN II-XII intact. Absent: motor sensory deficit - Psychiatric Psychiatric exam: Present: normal affect, normal mood - Skin Skin exam: Present: warm Results - Labs CBC & BMP: 10/16/16 Unknown 10/16/16 02:34
[2016-10-16] MEDS: AZITHROMYCIN INJ 250 MG in SODIUM CHLORIDE 0.9% 250 ML IV SCH (09:00)
[2016-10-16] MEDS: INSULIN GLARGINE 100 UNIT/ML SUBCUT SCH ×2 (09:11→20:39)
[2016-10-16] MEDS: sitaGLIPtin 100 MG TABLET PO SCH (09:11)
[2016-10-16] MEDS: LEVOTHYROXINE 100 MCG TABLET PO SCH (09:12)
[2016-10-16] MEDS: NYSTATIN 500,000 UNIT/5 ML UDCUP SWISH/SWAL SCH ×4 (09:12→20:37)
[2016-10-16] MEDS: ATENOLOL 50 MG TABLET PO SCH (09:13)
[2016-10-16] MEDS: ENOXAPARIN 40 MG/0.4 ML SYRINGE SUBCUT SCH (09:14)
--- NOTE | 2016-10-16 10:42 | Pulmonology Progress Note ---
Pulmonary - PN: Subj Interval history: This is a 61-year-old black female who came in with severe pneumonia. She is improving. 10/15/2016 the patient had a knee scope. She had a distal esophageal stricture was dilated. There was a fair amount of retained fluid in the stomach suspicious for gastroparesis. No bleeding was seen by biopsies were taken. There was akil of a diffuse gastritis H&H is 9.3/26.9. White count is 10,600 and platelets of 292,000. Electrolytes are normal. Creatinine is 1.1 with a BUN of 22 The patient is stable has no new complaints. Physical exam. Vital signs. See below Psychiatric. Oriented 3 Neurologic. Cranial nerves are grossly intact. Patient moves all fours. Face is symmetrical. No edema on the lips or tongue Neck. No meningismus Lymphatics. No submandibular cervical supraclavicular Chest. Clear Heart no gallop Abdomen. Nondistended. Rare bowel sounds Extremities. Nothing to suggest deep venous thrombophlebitis The remainder of the physical exam is negative Plan. Continue present regimen. 2. Medicines reviewed. No changes made Exam (Progress Note) - Constitutional Vitals: Period Temp Pulse Resp BP Sys/Araujo Pulse Ox Last 24 Hr 96.9 F-98.1 F 72-90 16-22 121-164/63-83 93-100 Results - Labs CBC & BMP: 10/16/16 Unknown 10/16/16 02:34
--- NOTE | 2016-10-16 13:09 | Nuclear Medicine Report ---
NM gastric emptying study Indication: Abdominal pain. Comparison: None. Technique: Following administration of 500 uCi technetium 99m labeled sulfur colloid mixed in an egg sandwich, planar imaging of the stomach and upper abdomen was performed in the anterior projection. Time activity curve was then calculated through 108 minutes. Findings: Planar images demonstrate homogeneous activity within the stomach with emptying into the small bowel normal manner. Time/activity curve demonstrates linear fit half-time of emptying of 131 minutes. 26% emptying at 67 minutes is noted. Impression: 1. Mild gastroparesis in the solid phase is demonstrated. 10/16/2016 1:06 PM PROCEDURE INTERPRETED AT [facility] DEPARTMENT OF RADIOLOGY Final Report Signed by: Dr. Cachorro Hightower
[2016-10-16] MEDS: MULTIVITAMIN (CENTRUM) TABLET PO SCH (14:43)
[2016-10-16] MEDS: DOCUSATE SODIUM 100 MG CAPSULE PO SCH ×2 (14:44→20:38)
[2016-10-16] MEDS: FOLIC ACID 0.4 MG TABLET PO SCH (14:45)
[2016-10-16] MEDS: PREGABALIN 75 MG CAPSULE PO SCH ×3 (14:45→20:37)
[2016-10-16] MEDS: FERROUS SULFATE 325 MG TABLET PO SCH ×2 (14:45→20:37)
[2016-10-16] MEDS: FLUoxetine 20 MG CAPSULE PO SCH ×2 (14:46→20:37)
[2016-10-16] MEDS: CYANOCOBALAMIN 500 MCG TABLET PO SCH (14:46)
[2016-10-16] MEDS: CETIRIZINE 10 MG TABLET PO SCH (14:47)
[2016-10-16] MEDS: SODIUM CHLORIDE 0.45% 1,000 ML IV SCH ×2 (20:32→21:03)
[2016-10-16] MEDS: cefTRIAXone 1,000 MG in SODIUM CHLORIDE 0.9% 100 ML IV SCH (20:35)
[2016-10-16] MEDS: SIMVASTATIN 20 MG TABLET PO SCH (20:38)
[2016-10-16] MEDS: MONTELUKAST 10 MG TABLET PO SCH (20:38)
[2016-10-17] MEDS: IPRATROPIUM 500 MCG/2.5 ML NEB RESP TX SCH ×4 (00:20→20:13)
[2016-10-17] MEDS: LEVALBUTEROL 1.25 MG/3 ML NEB RESP TX SCH ×4 (00:20→20:13)
[2016-10-17 02:44] LABS: Basophils % 0.1 % (0.0-0.8); Hematocrit 27.8 VOL% (35.7-47.0); Hemoglobin 9.5 GM/DL (12.0-16.0); Immature Granulocytes % 14.2 %; Immature Granulocytes Absolute 1.51 #; Lymphocytes # 2.2 10*3/uL (1.4-4.0); Lymphocytes % 20.6 % (21.3-54.2); Mean Corpuscular HGB Conc 34.2 GM/DL (32-36); Mean Corpuscular Hemoglobin 27 PG (27-34); Mean Corpuscular Volume 77.7 FL (87-102); Mean Platelet Volume 11.2 FL (9.6-12.0); Monocytes # 0.9 10*3/uL (0.11-0.8); Monocytes % 8.7 % (1.7-12.7); NRBC # 0.02 10*3/uL; Neutrophils % 56.4 % (38.7-73.9); Platelet Count 295 T/CUMM (130-400); Red Blood Count 3.58 MC/CUMM (3.8-5.5); Red Cell Distribution Width 16.3 % (9.3-17.3); White Blood Count 10.6 T/CUMM (4-12)
[2016-10-17 03:12] LABS: Calcium 8.6 MG/DL (8.5-10.1); Potassium 4.5 MMOL/L (3.5-5.1)
[2016-10-17 03:49] LABS: Band Neutrophils 6 % (0-10); Lymphocytes 20 % (20-55); Metamyelocytes 1 %; Myelocytes 1 %; Promyelocytes 1 %; Segmented Neutrophils 63 % (50-85); Total Cells Counted 100
[2016-10-17 03:50] LABS: Anisocytosis 1+; Platelet Estimate Normal; Smudge Cells 1+; Target Cells Few
[2016-10-17] MEDS: methylPREDNISolone SOD SUC 40 MG/1 ML VIAL IV SCH ×3 (06:13→22:13)
[2016-10-17] MEDS: SODIUM CHLORIDE 0.45% 1,000 ML IV SCH (06:14)
[2016-10-17] MEDS: BUDESONIDE 0.25 MG/2 ML NEB RESP TX SCH ×2 (06:54→20:13)
--- NOTE | 2016-10-17 06:54 | Family Practice Progress Note ---
Family Practice - PN: Subj Interval history: Patient states she had a good night's rest in her stomach feels a little bit better. Her gastric emptying scan showed mild evidence of gastroparesis. Her upper endoscopy showed slight esophageal stricture and she is scheduled for C scope tomorrow. Patient states her appetite is improved and overall she is feeling much better. I told which could stop her IV fluids so she did have a little more freedom in the room and she told me that appealed to her. Exam (Progress Note) - Constitutional Vitals: Period Temp Pulse Resp BP Sys/Araujo Pulse Ox Last 24 Hr 96.6 F-98.4 F 65-87 18-22 117-164/60-83 95-100 Exam: Objective a pleasant black female is awake alert and able to give good history. She has no dyspnea at rest. She states her abdomen is feeling better. Cardiovascular: Heart rates regular I hear no murmurs or gallops. Respiratory: Lungs were clear to auscultation this morning. Abdomen: Abdomen soft and nontender to palpation. Extremities: There is no calf swelling or tenderness. We will place her on Lovenox. Results - Labs CBC & BMP: 10/17/16 01:54 10/17/16 01:54 Lab Results: I have reviewed the past 24 hour labs Assessment and Plan (1) Pneumonia Status: Acute Assessment and plan: 10/16/2016: Patient is improving clinically. We will continue present IV antibiotic therapy. 10/17/2016: Patient is certainly improved clinically. Current Visit: Yes (2) Microcytic anemia Status: Acute Assessment and plan: 10/17/2016: Hematocrit remained stable, patient scheduled for C scope in the morning. Current Visit: Yes
[2016-10-17] MEDS: INSULIN LISPRO 100 UNIT/ML SUBCUT SCH ×7 (07:37→22:21)
[2016-10-17] MEDS: ENOXAPARIN 40 MG/0.4 ML SYRINGE SUBCUT SCH (08:56)
[2016-10-17] MEDS: NYSTATIN 500,000 UNIT/5 ML UDCUP SWISH/SWAL SCH ×4 (08:57→22:13)
[2016-10-17] MEDS: LEVOTHYROXINE 100 MCG TABLET PO SCH (08:57)
[2016-10-17] MEDS: CETIRIZINE 10 MG TABLET PO SCH (08:57)
[2016-10-17] MEDS: FOLIC ACID 0.4 MG TABLET PO SCH (08:57)
[2016-10-17] MEDS: FERROUS SULFATE 325 MG TABLET PO SCH ×2 (08:57→22:13)
[2016-10-17] MEDS: MULTIVITAMIN (CENTRUM) TABLET PO SCH (08:57)
[2016-10-17] MEDS: ATENOLOL 50 MG TABLET PO SCH (08:58)
[2016-10-17] MEDS: CYANOCOBALAMIN 500 MCG TABLET PO SCH (08:58)
[2016-10-17] MEDS: sitaGLIPtin 100 MG TABLET PO SCH (08:58)
[2016-10-17] MEDS: DOCUSATE SODIUM 100 MG CAPSULE PO SCH ×2 (08:58→22:13)
[2016-10-17] MEDS: FLUoxetine 20 MG CAPSULE PO SCH ×2 (08:59→22:13)
[2016-10-17] MEDS: PREGABALIN 75 MG CAPSULE PO SCH ×3 (08:59→22:13)
[2016-10-17] MEDS: INSULIN GLARGINE 100 UNIT/ML SUBCUT SCH ×2 (08:59→22:21)
[2016-10-17] MEDS: BISACODYL 5 MG TABLET PO SCH ×2 (09:06→16:55)
[2016-10-17] MEDS: AZITHROMYCIN INJ 250 MG in SODIUM CHLORIDE 0.9% 250 ML IV SCH (09:08)
--- NOTE | 2016-10-17 09:36 | Pulmonology Progress Note ---
Pulmonary - PN: Subj Interval history: This is a 61-year-old black female who came in with severe pneumonia. She is improving. 10/16/2016 the patient had a EGD scope. She had a distal esophageal stricture was dilated. There was a fair amount of retained fluid in the stomach suspicious for gastroparesis. No bleeding was seen by biopsies were taken. There was akil of a diffuse gastritis H&H is 9.3/26.9. White count is 10,600 and platelets of 292,000. Electrolytes are normal. Creatinine is 1.1 with a BUN of 22 The patient is stable has no new complaints. 10/17/2016. This patient is eating well she says she is breathing better and swallowing better. Gastric emptying showed mild gastroparesis in the solid phase. CBC electrolytes are stable. Creatinine is 1.0 BUNs 18. Physical exam. Vital signs. See below Psychiatric. Oriented 3. Upbeat Neurologic. Cranial nerves are grossly intact. Patient moves all fours. Face is symmetrical. No edema on the lips or tongue Neck. No meningismus Lymphatics. No submandibular cervical supraclavicular Chest. Clear Heart no gallop Abdomen. Nondistended. Rare bowel sounds Extremities. Nothing to suggest deep venous thrombophlebitis The remainder of the physical exam is negative Plan. 10/16/2069 #1 continue present regimen. 2. Medicines reviewed. No changes made 10/17/2016. 1. See my note above. 2. Clinically much better. 3. See gastric emptying study Exam (Progress Note) - Constitutional Vitals: Period Temp Pulse Resp BP Sys/Araujo Pulse Ox Last 24 Hr 96.6 F-98.4 F 65-80 18-22 117-141/60-70 95-100 Results - Labs CBC & BMP: 10/17/16 01:54 10/17/16 01:54
--- NOTE | 2016-10-17 12:38 | Gastrointestinal Progress Note ---
Assessment and Plan (1) Microcytic anemia Status: Acute Assessment and plan: Patient has a microcytic anemia of unclear etiology. We will check to make sure that there is cancer but her main complaint right now to me is dysphasia and so we will look to see if there is any evidence of upper GI cancer and potentially do Savary dilation similar to the [address] [place] were used last dilation on 09/17/15. Will definitely check the small bowel for celiac sprue. This patient had a colonoscopy done by Dr. Garcia as recently as 2013 but this was unremarkable for bleeding source. However, the prep was considered poor and therefore may repeat this evaluation with a better prep. Will strongly consider doing this on 18 October after the weekend. We will proceed with upper endoscopy tomorrow as noted below. Some of the anemia certainly due to chronic disease, will check the patient's reticulocyte count and iron studies to confirm this is iron deficiency as opposed to thalassemia or other process. Again I note that her hematocrit as of 07/22/11 was 40.7%. 10/15/16--the patient's upper endoscopy demonstrated the following: Distal esophageal stricturing status post dilation to 57 [place] by Savary dilator. This patient has a fair amount of retained fluid in the stomach suspicious for gastroparesis, no clear cause for the patient's bleeding but biopsies taken to rule out celiac sprue as well as recheck after treatment of Helicobacter pylori. She did have evidence of a diffuse gastritis. I think we need to get a gastric emptying study done tomorrow to establish that this patient has gastroparesis or not given her diabetes. This will likely be an ongoing problem for her may be adding to her stricturing. I do not see a source for the patient's bleeding, will watch her over the weekend and likely do a colonoscopy again given the acute blood loss on Tuesday since her last colonoscopy had a poor prep. We should be I will see if there is any AVMs present. 10/16/16--Gastric emptying study is about to be done this morning. Not much findings on the upper endoscopy, the patient did get some relief from the dilation, will go ahead and feed her today a regular diet with clear liquids that are going to start tomorrow for an anticipated colonoscopy on Tuesday morning 10/17/16--Gastric emptying study shows slow emptying with a T1 half emptying time of 131 minutes. She might benefit from use of Reglan, will try a small amount of this as she is prepping for colonoscopy to see if she tolerates the medication. Patient was warned about issues of tardive dyskinesia, agitation and sedation. Will use a half dose to see if this benefits her at all. Current Visit: Yes (2) Oropharyngeal dysphagia Status: Acute Assessment and plan: The patient has a history of recurrent difficulties with swallowing. She did not return for her follow-up dilation after being seen in July 14 of this year. We will go ahead and arrange for this now. As mentioned above we will look for evidence of celiac sprue and a potential bleeding source but none was seen on last evaluation. Would definitely keep this patient off of anticoagulation for the present time. Suggest use of Protonix twice daily. 10/15/16--patient was dilated to 57 [place] by single pass Savary and will observe and see if this helps out with her swallowing, interim diet written. 10/16/16--Doing better post dilation. 10/17/16--The patient's ability to swallow is back up to its normal level. Current Visit: Yes (3) GERD (gastroesophageal reflux disease) Status: Acute Assessment and plan: The patient does have some mild reflux symptoms currently being controlled with Protonix as mentioned. 10/15/16--patient is being treated with Protonix at present. No significant element of esophagitis but the patient does have a stricture that was dilated. 10/16/16--Patient does have some mild reflux. This is an ongoing problem. She is on Protonix. Rechecking to see if there is gastroparesis. Current Visit: Yes (4) Nausea & vomiting Status: Acute Assessment and plan: This appears to be improved with IV pantoprazole. We will continue to watch, especially after dilation is completed. 10/15/16--Again the patient remains on pantoprazole, no further nausea vomiting yet. We will check her for gastroparesis tomorrow. 10/16/16--Improved. 10/17/16--Back to normal. Current Visit: Yes Gastroenterology - PN: Subj Interval history: No new complaints, swallowing well, taking clear liquids well. Exam (Progress Note) - Constitutional Vitals: Period Temp Pulse Resp BP Sys/Araujo Pulse Ox Last 24 Hr 96.6 F-98.4 F 62-80 18-20 117-164/60-75 95-99 General appearance: no acute distress - Head Head exam: Present: normocephalic - Eye Eye exam: Present: EOMI - Respiratory Respiratory exam: Present: clear to auscultation bilaterally. Absent: rhonchi, stridor, wheezes - Cardiovascular Cardiovascular exam: Present: regular rate and rhythm - GI/Abdominal GI/Abdominal exam: Present: normal bowel sounds, tenderness (Slight tenderness in the periumbilical area especially on the left side), soft. Absent: rebound - Extremities Exam Extremities exam: Present: normal inspection - Neurological Exam Neurological exam: Present: alert, oriented X3 - Psychiatric Psychiatric exam: Present: normal affect, normal mood - Skin Skin exam: Present: warm Results - Labs CBC & BMP: 10/17/16 01:54 10/17/16 01:54
[2016-10-17] MEDS ORDERED: POLYETHYLENE GLYCOL POWDER 255 GM BOTTLE PO ONE (18:00)
[2016-10-17] MEDS ORDERED: MAGNESIUM CITRATE 300 ML BOTTLE PO ONE (21:00)
[2016-10-17] MEDS: MONTELUKAST 10 MG TABLET PO SCH (22:13)
[2016-10-17] MEDS: SIMVASTATIN 20 MG TABLET PO SCH (22:13)
[2016-10-17] MEDS: cefTRIAXone 1,000 MG in SODIUM CHLORIDE 0.9% 100 ML IV SCH (22:14)
[2016-10-18] MEDS: LEVALBUTEROL 1.25 MG/3 ML NEB RESP TX SCH ×4 (00:31→19:00)
[2016-10-18] MEDS: IPRATROPIUM 500 MCG/2.5 ML NEB RESP TX SCH ×4 (00:31→18:59)
[2016-10-18] MEDS: BISACODYL 5 MG TABLET PO SCH (00:57)
[2016-10-18] MEDS: methylPREDNISolone SOD SUC 40 MG/1 ML VIAL IV SCH ×3 (05:23→14:38)
[2016-10-18 06:27] LABS: Basophils % 0.2 % (0.0-0.8); Hematocrit 31.4 VOL% (35.7-47.0); Hemoglobin 10.7 GM/DL (12.0-16.0); Immature Granulocytes % 8.7 %; Immature Granulocytes Absolute 0.97 #; Lymphocytes # 2.4 10*3/uL (1.4-4.0); Lymphocytes % 21.1 % (21.3-54.2); Mean Corpuscular HGB Conc 34.1 GM/DL (32-36); Mean Corpuscular Hemoglobin 27 PG (27-34); Mean Corpuscular Volume 79.1 FL (87-102); Mean Platelet Volume 10.9 FL (9.6-12.0); Monocytes # 0.6 10*3/uL (0.11-0.8); Monocytes % 5.7 % (1.7-12.7); NRBC # 0.02 10*3/uL; Neutrophils # 7.2 10*3/uL (1.4-7.4); Neutrophils % 64.3 % (38.7-73.9); Platelet Count 319 T/CUMM (130-400); Red Blood Count 3.97 MC/CUMM (3.8-5.5); Red Cell Distribution Width 16.9 % (9.3-17.3); White Blood Count 11.2 T/CUMM (4-12)
[2016-10-18] MEDS: BUDESONIDE 0.25 MG/2 ML NEB RESP TX SCH ×2 (07:12→19:00)
[2016-10-18 07:16] LABS: Hypochromasia 2+; Lymphocytes 19 % (20-55); Platelet Estimate Adequate; Polychromasia 1+; Segmented Neutrophils 78 % (50-85); Target Cells 1+; Total Cells Counted 100
--- NOTE | 2016-10-18 09:23 | Operative Note ---
Date of procedure: 10/18/16 Pre-op diagnosis: Iron deficiency anemia with minimal findings on EGD Post-op diagnosis: other (Normal colonoscopy with small internal hemorrhoids but no source of bleeding seen. Normal-appearing small bowel) Procedure: PROCEDURE: Colonoscopy REFERRING PHYSICIAN: Allyson Vasquez MD INDICATIONS: Iron deficiency anemia with hematocrit dropped currently at 31% with minimal findings on upper endoscopy. The prior H&P was reviewed and interrim changes are as noted: No change from GI consultation this admission. ENDOSCOPIST: Dmitriy Lennon MD ENDOSCOPE: Olympus Video 100 System colonoscope COLON PREPARATION: 238 gm of PEG containing laxative and 1.9 liters of gatoraid/sports drink and dulcolax 15 mg q8 hours x 3 ASA CLASS: 3 EXAM: CV: regular rate and rhythm Respiratory: Clear without wheezes Abdominal: active bowel sounds Rectal: Good tone, no fissures or fistulas MEDICATION: Per nursing anesthesia protocol, see their notes PROCEDURE: After discussion of the potential risks and benefits of colonoscopy, the informed consent was obtained, from patient or health care surrogate. The patient was then placed in the left lateral decubitus position where sedation was achieved as noted above. Rectal examination was followed by insertion of the colonoscope. The colonoscope was passed under direct visualization to the cecum. Advancement was facilitated by insertion/withdrawl techniques, abdominal pressure and patient positioning. Once the cecal pole was reached, slow withdrawal was performed with the findings as noted below. The patient tolerated the procedure well and without complication. QUALITY OF PREP: Excellent WITHDRAWL TIME: 6 minutes 1 second BIOPSIES: Not obtained PHOTOGRAPHS: Obtained FINDINGS: The musoca appeared normal in the following regions: rectum, sigmoid colon, descending colon, splenic flexure, transverse colon, hepatic flexure, ascending colon and cecum. Position within the cecum was confirmed by ileocecal valve, appendiceal oriface, and the convergence of folds (crows foot) . No colitis, polyp, mass or AVM was noted throughout the colon. No diverticulosis noted. Intubation of the TI was achieved x 5 cm with normal appearence IMPRESSION: Normal colonoscopy with small internal hemorrhoids but no source of bleeding seen. Normal-appearing small bowel RECOMMENDATIONS: High fiber diet Repeat colonosocopy will be in 10 years Citrucel 1 tablespoon in 12 oz juice BID: 1 bottle: :11 Follow up by phone for biopsy results in 1-2 weeks by phone Dmitriy Lennon MD COPY TO: Allyson Vasquez MD Anesthesia: MAC Surgeon / Physician: Dmitriy Lennon Estimated blood loss: minimal Specimens: none sent Condition: stable Disposition: post procedure unit (G.I. Suite) Results - Labs CBC & BMP: 10/18/16 06:02 10/17/16 01:54 Discharge Plan - Discharge Medications No Action Spironolactone [Aldactone] 25 mg PO BID sitaGLIPtin [Januvia] 100 mg PO DAILY Cetirizine Tab [ZyrTEC TAB] 10 mg PO BID Atenolol [Atenolol] 1 tablet PO DAILY HydrOXYzine PAMOATE CAP [Vistaril Cap] 25 mg PO TID PRN PRN Reason: Anxiety Linagliptin [Tradjenta] 5 mg PO QAM Potassium Chloride 20 meq PO DAILY Folic Acid Tab 0.4 mg PO DAILY Insulin Aspart [NovoLOG FlexPen] 20 unit SUBCUT TID Levothyroxine Tab [Synthroid Tab] 100 mcg PO QAM Insulin Glargine,Hum.rec.anlog [Lantus SoloStar] 25 unit SUBCUT QPM Fluoxetine HCl 40 mg PO BID Cetirizine HCl [Cetirizine Tab] 10 mg PO DAILY Multivit-Min/FA/Lycopen/Lutein [Centrum Silver Tablet] 1 each PO DAILY Simvastatin 20 mg PO QPM Pregabalin [Lyrica] 150 mg PO TID Cyanocobalamin (Vitamin B-12) [Vitamin B-12] 1,000 mcg PO DAILY Insulin Glargine,Hum.rec.anlog [Lantus SoloStar] 45 unit SUBCUT QAM Amoxicillin Cap/Tab 500 mg PO Q6H Esomeprazole Magnesium [Nexium] 40 mg PO DAILY Celecoxib [Celebrex] 200 mg PO BID - Follow Up or Referral - Forms/Instructions
--- NOTE | 2016-10-18 09:27 | Gastrointestinal Progress Note ---
Assessment and Plan (1) Microcytic anemia Status: Acute Assessment and plan: Patient has a microcytic anemia of unclear etiology. We will check to make sure that there is cancer but her main complaint right now to me is dysphasia and so we will look to see if there is any evidence of upper GI cancer and potentially do Savary dilation similar to the 57 Kenyan were used last dilation on 09/17/15. Will definitely check the small bowel for celiac sprue. This patient had a colonoscopy done by Dr. Garcia as recently as 2013 but this was unremarkable for bleeding source. However, the prep was considered poor and therefore may repeat this evaluation with a better prep. Will strongly consider doing this on 18 October after the weekend. We will proceed with upper endoscopy tomorrow as noted below. Some of the anemia certainly due to chronic disease, will check the patient's reticulocyte count and iron studies to confirm this is iron deficiency as opposed to thalassemia or other process. Again I note that her hematocrit as of 07/22/11 was 40.7%. 10/15/16--the patient's upper endoscopy demonstrated the following: Distal esophageal stricturing status post dilation to 57 Kenyan by Savary dilator. This patient has a fair amount of retained fluid in the stomach suspicious for gastroparesis, no clear cause for the patient's bleeding but biopsies taken to rule out celiac sprue as well as recheck after treatment of Helicobacter pylori. She did have evidence of a diffuse gastritis. I think we need to get a gastric emptying study done tomorrow to establish that this patient has gastroparesis or not given her diabetes. This will likely be an ongoing problem for her may be adding to her stricturing. I do not see a source for the patient's bleeding, will watch her over the weekend and likely do a colonoscopy again given the acute blood loss on Tuesday since her last colonoscopy had a poor prep. We should be I will see if there is any AVMs present. 10/16/16--Gastric emptying study is about to be done this morning. Not much findings on the upper endoscopy, the patient did get some relief from the dilation, will go ahead and feed her today a regular diet with clear liquids that are going to start tomorrow for an anticipated colonoscopy on Tuesday morning 10/17/16--Gastric emptying study shows slow emptying with a T1 half emptying time of 131 minutes. She might benefit from use of Reglan, will try a small amount of this as she is prepping for colonoscopy to see if she tolerates the medication. Patient was warned about issues of tardive dyskinesia, agitation and sedation. Will use a half dose to see if this benefits her at all. 10/18/16--The patient had a colonoscopy done today, this was felt to be completely normal. This indicates no significant findings on either EGD or colonoscopy. The patient should continue taking her Protonix and Reglan another month or 2 of her hematocrit is still low consider doing capsule endoscopy to completely eliminate the GI tract as a source. Current Visit: Yes (2) Oropharyngeal dysphagia Status: Acute Assessment and plan: The patient has a history of recurrent difficulties with swallowing. She did not return for her follow-up dilation after being seen in July 14 of this year. We will go ahead and arrange for this now. As mentioned above we will look for evidence of celiac sprue and a potential bleeding source but none was seen on last evaluation. Would definitely keep this patient off of anticoagulation for the present time. Suggest use of Protonix twice daily. 10/15/16--patient was dilated to 57 Kenyan by single pass Savary and will observe and see if this helps out with her swallowing, interim diet written. 10/16/16--Doing better post dilation. 10/17/16--The patient's ability to swallow is back up to its normal level. 10/18/16--The patient's swallowing is improved post dilation. Current Visit: Yes (3) GERD (gastroesophageal reflux disease) Status: Acute Assessment and plan: The patient does have some mild reflux symptoms currently being controlled with Protonix as mentioned. 10/15/16--patient is being treated with Protonix at present. No significant element of esophagitis but the patient does have a stricture that was dilated. 10/16/16--Patient does have some mild reflux. This is an ongoing problem. She is on Protonix. Rechecking to see if there is gastroparesis. 10/18/16--Patient is on Protonix she does have gastroparesis, she will require both this medication and the Reglan ongoing. Current Visit: Yes (4) Nausea & vomiting Status: Acute Assessment and plan: This appears to be improved with IV pantoprazole. We will continue to watch, especially after dilation is completed. 10/15/16--Again the patient remains on pantoprazole, no further nausea vomiting yet. We will check her for gastroparesis tomorrow. 10/16/16--Improved. 10/17/16--Back to normal. 10/18/16--This problem is resolved. Current Visit: Yes Gastroenterology - PN: Subj Interval history: No new complaints, doing well, tolerating the Reglan without any side effects of tardive dyskinesia. Exam (Progress Note) - Constitutional Vitals: Period Temp Pulse Resp BP Sys/Araujo Pulse Ox Last 24 Hr 96.5 F-98.1 F 66-87 17-20 121-191/64-85 93-100 General appearance: no acute distress - Head Head exam: Present: normocephalic - Eye Eye exam: Present: EOMI - Respiratory Respiratory exam: Present: clear to auscultation bilaterally - Cardiovascular Cardiovascular exam: Present: regular rate and rhythm - GI/Abdominal GI/Abdominal exam: Present: normal bowel sounds - Neurological Exam Neurological exam: Present: alert, oriented X3 - Psychiatric Psychiatric exam: Present: normal affect, normal mood - Skin Skin exam: Present: warm Results - Labs CBC & BMP: 10/18/16 06:02 10/17/16 01:54
--- NOTE | 2016-10-18 09:45 | Anesthesia Post-Op ---
Anesthesia Post OP - Post Ansesthetic Evaluation Patient seen in post op: Yes Resp: within normal limits CV: within normal limits Mental: within normal limits Temp: within normal limits Tffb-Mz-[id number]: within normal limits Nausea and Vomiting: within normal limits Pain: within normal limits
--- NOTE | 2016-10-18 11:21 | Pathology Report from [facility] ---
[facility] ACCESSION # : [id number] PATIENT NAME : Andreina Aquino ORDERING DR : Dmitriy Lennon MD CLINICAL HX: Anemia - Dysphagia POST-OP DX: #1 History Sprue #2 Gastritis SPECIMEN INFO: #1 Duodenal biopsy #2 BARBARA GROSS DESCRIPTION: Received in formalin in two parts labeled:#1 ANDREINA AQUINO & #1 are fragments of pink vance mucosal tissue measuring together 0.3 x 0.5 cm submitted in cassette #1.#2 ANDREINA AQUINO & #2 are fragments of trujillo vance mucosal tissue measuring 0.3 x 0.3 cm submitted in cassette #2. DIAGNOSIS FOR ANDREINA AQUINO: #1 DUODENAL BIOPSIES: Unremarkable duodenal mucosa with normal villous architecture and no organisms or intraepithelial lymphocytosis.#2 GASTRIC BIOPSIES: Chronic antral gastritis. H. pylori not seen on H&E or special stain with appropriate control. COLLECTED DATE: 10/15/2016 [facility] REPORT DATE: 10/18/2016 ELECTRONICALLY SIGNED BY: Rashawn Bolden M.D. 10/18/2016 - 10:06:46 [facility] [place] DIVISIONGuzman
[2016-10-18] MEDS: AZITHROMYCIN INJ 250 MG in SODIUM CHLORIDE 0.9% 250 ML IV SCH (12:05)
[2016-10-18] MEDS: INSULIN LISPRO 100 UNIT/ML SUBCUT SCH ×8 (12:06→21:00)
[2016-10-18] MEDS: INSULIN GLARGINE 100 UNIT/ML SUBCUT SCH ×2 (12:07→21:00)
[2016-10-18] MEDS: ENOXAPARIN 40 MG/0.4 ML SYRINGE SUBCUT SCH (12:08)
[2016-10-18] MEDS: FOLIC ACID 0.4 MG TABLET PO SCH (12:13)
[2016-10-18] MEDS: NYSTATIN 500,000 UNIT/5 ML UDCUP SWISH/SWAL SCH ×4 (12:13→21:03)
[2016-10-18] MEDS: FLUoxetine 20 MG CAPSULE PO SCH ×2 (12:13→20:59)
[2016-10-18] MEDS: ATENOLOL 50 MG TABLET PO SCH (12:14)
[2016-10-18] MEDS: MULTIVITAMIN (CENTRUM) TABLET PO SCH (12:14)
[2016-10-18] MEDS: sitaGLIPtin 100 MG TABLET PO SCH (12:14)
[2016-10-18] MEDS: CETIRIZINE 10 MG TABLET PO SCH (12:15)
[2016-10-18] MEDS: CYANOCOBALAMIN 500 MCG TABLET PO SCH (12:16)
[2016-10-18] MEDS: DOCUSATE SODIUM 100 MG CAPSULE PO SCH ×3 (12:16→21:10)
[2016-10-18] MEDS: FERROUS SULFATE 325 MG TABLET PO SCH ×2 (12:17→20:59)
[2016-10-18] MEDS: LEVOTHYROXINE 100 MCG TABLET PO SCH (12:17)
--- NOTE | 2016-10-18 14:52 | Pulmonology Progress Note ---
Pulmonary - PN: Subj Interval history: Patient is a 61-year-old black lady that has a history of diabetes, hypertension , and obesity. She comes in with shortness of breath cough and congestion. She has been treated for pneumonia. Her chest x-ray is very abnormal. There certainly looks like there may be a component of heart failure. She is felt to have a right lung pneumonia also. Overall her breathing is been doing much better. She has done well over the weekend she feels like her breathing is better. Today she had a C scope that was negative. Chest congestion is much better. She is having trouble with diabetes so we will change her to p.o. medicines. Exam (Progress Note) - Constitutional Vitals: Period Temp Pulse Resp BP Sys/Araujo Pulse Ox Last 24 Hr 96.5 F-98.1 F 66-89 17-24 103-152/54-70 93-100 Exam: General appearance: no distress (She is sitting up and looks quite comfortable now.) - Head Head exam: Present: normal inspection, normocephalic - Eye Eye exam: Present: EOMI. Absent: scleral icterus Pupils: Present: RENNY - ENT ENT exam: Present: normal exam - Neck Neck exam: Present: normal inspection. Absent: lymphadenopathy, thyromegaly - Respiratory Respiratory exam: Present: She is moving air fairly well and her lungs sound much clearer now. - Cardiovascular Cardiovascular exam: Present: regular rate and rhythm. Absent: gallop, systolic murmur - GI/Abdominal GI/Abdominal exam: Present: normal bowel sounds, soft. Absent: organomegaly, tenderness - Extremities Exam Extremities exam: Absent: calf tenderness, edema, she has no signs of phlebitis. - Neurological Exam Neurological exam: Present: alert, oriented X3, CN II-XII intact - Psychiatric Psychiatric exam: Present: normal affect, normal mood - Skin Skin exam: Present: warm, dry Results - Labs CBC & BMP: 10/18/16 06:02 10/17/16 01:54 Assessment and Plan (1) Chronic back pain Status: Acute Assessment and plan: The patient is relatively comfortable at present. Current Visit: Yes (2) Right lower lobe pneumonia Status: Acute Assessment and plan: Patient comes in with a right lower lobe pneumonia and fever. She has done well on antibiotics and is feeling better. Will change her to oral antibiotics and check one more x-ray in the morning. She can probably go home tomorrow. Current Visit: Yes (3) Diabetes Status: Chronic Assessment and plan: Patient's glucose is up a little on steroids. Her glucose was 133 this morning. Current Visit: Yes Qualifiers: Diabetes mellitus type: type 2 Diabetes mellitus complication status: with neurologic complications Diabetes mellitus complication detail: with polyneuropathy Diabetes mellitus group home insulin use: with continuous churn buttermaker use Qualified Code(s): E11.42 - Type 2 diabetes mellitus with diabetic polyneuropathy; Z79.4 - [facility] (current) use of insulin (4) Hypertension Status: Chronic Assessment and plan: The patient has hypertensive cardiovascular disease. Her echo shows good left ventricular function. She appears to be hemodynamically stable. Current Visit: Yes Qualifiers: Hypertension type: essential hypertension Qualified Code(s): I10 - Essential (primary) hypertension (5) GERD (gastroesophageal reflux disease) Status: Acute Assessment and plan: She had an EGD today with dilatation. She is getting a gastric emptying study. She had a C scope today. Current Visit: Yes
--- NOTE | 2016-10-18 15:42 | Internal Med Progress Note ---
Assessment and Plan (1) Right lower lobe pneumonia Status: Acute Current Visit: Yes (2) Hypertension Status: Chronic Current Visit: Yes Qualifiers: Hypertension type: essential hypertension Qualified Code(s): I10 - Essential (primary) hypertension (3) Diabetes Status: Chronic Current Visit: Yes Qualifiers: Diabetes mellitus type: type 2 Diabetes mellitus complication status: with neurologic complications Diabetes mellitus complication detail: with polyneuropathy Diabetes mellitus manager long term care insulin use: with manager long term care use Qualified Code(s): E11.42 - Type 2 diabetes mellitus with diabetic polyneuropathy; Z79.4 - equipment operator intermodal yard (current) use of insulin (4) Peripheral neuropathy Status: Chronic Current Visit: Yes Qualifiers: Peripheral neuropathy type: polyneuropathy associated with underlying disease Qualified Code(s): G63 - Polyneuropathy in diseases classified elsewhere (5) Gastroparesis Status: Acute Current Visit: Yes Internal Medicine - PN: Subj Interval history: This is a 61 year old female with history of HTN, arthritic changes and chronic pain, DM, peripheral neuropathy, dyslipidemia, who presented to ER with shortness of breath and malaise. She was found to have RLL pneumonia. Chest x- ray shows worsening of infiltrate/consolidation and antibiotics were changed as well as adjustments in breathing treatments. Solumedrol added along with adjustments in insulin coverage. Doing better, but weak. Will adjust Solumedrol. Hyperglycemic surges. Adjusting breathing treatments and Atenolol. She is "jittery" with Xopenex. Repeat chest x-ray in the morning. Doing better. She may be discharged over the weekend as she continues to improve. Chest x-ray improved. ECHO shows normal LVEF and mild diastolic dysfunction; no pulmonary hypertension. She is steadily improving, but is still feeling weak. EGD today uncovered possible gastric delay. Will have gastric emptying study tomorrow. Studies show mild gastroparesis and mild esophageal stricture. She is doing better, but wants more PT/OT and would like to go to swing bed. Consulting neonatal social worker for placement. Exam (Progress Note) - Constitutional Vitals: Period Temp Pulse Resp BP Sys/Araujo Pulse Ox Last 24 Hr 96.5 F-98.1 F 66-89 17-24 103-152/54-70 93-100 Exam: General appearance: no acute distress - Respiratory Respiratory exam: Present: clear - Cardiovascular Cardiovascular exam: Present: regular rate and rhythm - GI/Abdominal GI/Abdominal exam: Present: soft. Absent: tenderness - Extremities Exam Extremities exam: Absent: edema - Neurological Exam Neurological exam: Present: alert, oriented X3 - Psychiatric Psychiatric exam: Present: normal mood - Skin Skin exam: Present: warm, dry Results - Labs CBC & BMP: 10/18/16 06:02 10/17/16 01:54
[2016-10-18] MEDS: PREGABALIN 75 MG CAPSULE PO SCH ×2 (16:45→20:59)
[2016-10-18] MEDS: MONTELUKAST 10 MG TABLET PO SCH (20:59)
[2016-10-18] MEDS: PANTOPRAZOLE 40 MG TABLET PO SCH (20:59)
[2016-10-18] MEDS: CEFUROXIME 500 MG TABLET PO SCH (20:59)
[2016-10-18] MEDS: ALUMINUM/MAGNES/SIMETH MAX STR 30 ML UDCUP PO PRN (21:00)
[2016-10-18] MEDS: SIMVASTATIN 20 MG TABLET PO SCH (21:03)
[2016-10-19] MEDS: LEVALBUTEROL 1.25 MG/3 ML NEB RESP TX SCH ×4 (01:38→19:52)
[2016-10-19] MEDS: IPRATROPIUM 500 MCG/2.5 ML NEB RESP TX SCH ×4 (01:38→19:51)
[2016-10-19 06:43] LABS: Albumin 2.6 G/DL (3.4-5.0); Bilirubin,Total 0.6 MG/DL (0.2-1.0); Osmolality,Calculated 288.4 MOS/KG (273-304); Potassium 4.5 MMOL/L (3.5-5.1)
[2016-10-19] MEDS: BUDESONIDE 0.25 MG/2 ML NEB RESP TX SCH ×2 (06:56→19:52)
[2016-10-19] MEDS: FLUoxetine 20 MG CAPSULE PO SCH ×2 (09:10→21:33)
[2016-10-19] MEDS: CYANOCOBALAMIN 500 MCG TABLET PO SCH (09:11)
[2016-10-19] MEDS: ATENOLOL 50 MG TABLET PO SCH (09:12)
[2016-10-19] MEDS: predniSONE 20 MG TABLET PO SCH (09:14)
[2016-10-19] MEDS: CETIRIZINE 10 MG TABLET PO SCH (09:14)
[2016-10-19] MEDS: CEFUROXIME 500 MG TABLET PO SCH ×2 (09:14→21:32)
[2016-10-19] MEDS: MULTIVITAMIN (CENTRUM) TABLET PO SCH (09:15)
[2016-10-19] MEDS: PANTOPRAZOLE 40 MG TABLET PO SCH (09:15)
[2016-10-19] MEDS: sitaGLIPtin 100 MG TABLET PO SCH (09:15)
[2016-10-19] MEDS: FOLIC ACID 0.4 MG TABLET PO SCH (09:15)
[2016-10-19] MEDS: FERROUS SULFATE 325 MG TABLET PO SCH ×2 (09:15→21:32)
[2016-10-19] MEDS: LEVOTHYROXINE 100 MCG TABLET PO SCH (09:15)
[2016-10-19] MEDS: PREGABALIN 75 MG CAPSULE PO SCH ×3 (09:16→21:32)
[2016-10-19] MEDS: INSULIN GLARGINE 100 UNIT/ML SUBCUT SCH ×2 (09:17→21:33)
[2016-10-19] MEDS: NYSTATIN 500,000 UNIT/5 ML UDCUP SWISH/SWAL SCH ×4 (09:17→21:33)
[2016-10-19] MEDS: INSULIN LISPRO 100 UNIT/ML SUBCUT SCH ×7 (09:18→21:34)
[2016-10-19] MEDS: DOCUSATE SODIUM 100 MG CAPSULE PO SCH ×2 (09:22→21:34)
--- NOTE | 2016-10-19 10:11 | Pulmonology Progress Note ---
Pulmonary - PN: Subj Interval history: Patient is a 61-year-old black lady that has a history of diabetes, hypertension , and obesity. She comes in with shortness of breath cough and congestion. She has been treated for pneumonia. Her chest x-ray is very abnormal. There certainly looks like there may be a component of heart failure. She is felt to have a right lung pneumonia also. Overall her breathing is been doing much better. She feels better today and is sitting up and moving around. Her shortness of breath is much improved. Her chest x-ray shows minimal infiltrates in the bases and is much better. Hopefully this will clear with time. She feels better and is moving around more. She says she wants to go to a swing bed. We will stop her antibiotics. Exam (Progress Note) - Constitutional Vitals: Period Temp Pulse Resp BP Sys/Araujo Pulse Ox Last 24 Hr 96.4 F-98.7 F 69-100 18-25 91-129/51-70 95-100 Exam: General appearance: no distress (She is sitting up and looks quite comfortable now. She is not short of breath with oxygen off) - Head Head exam: Present: normal inspection, normocephalic - Eye Eye exam: Present: EOMI. Absent: scleral icterus Pupils: Present: RENNY - ENT ENT exam: Present: normal exam - Neck Neck exam: Present: normal inspection. Absent: lymphadenopathy, thyromegaly - Respiratory Respiratory exam: Present: She is moving air fairly well and her lungs sound much clearer now. - Cardiovascular Cardiovascular exam: Present: regular rate and rhythm. Absent: gallop, systolic murmur - GI/Abdominal GI/Abdominal exam: Present: normal bowel sounds, soft. Absent: organomegaly, tenderness - Extremities Exam Extremities exam: Absent: calf tenderness, edema, she has no signs of phlebitis. - Neurological Exam Neurological exam: Present: alert, oriented X3, CN II-XII intact - Psychiatric Psychiatric exam: Present: normal affect, normal mood - Skin Skin exam: Present: warm, dry Results - Labs CBC & BMP: 10/18/16 06:02 10/19/16 05:57 - Diagnostic Findings Procedure: Chest x-ray: image reviewed by me, report reviewed by me (Chest x- ray is much improved with minimal infiltrates in the bases.) Assessment and Plan (1) Chronic back pain Status: Acute Assessment and plan: The patient is relatively comfortable at present. Current Visit: Yes (2) Right lower lobe pneumonia Status: Acute Assessment and plan: Patient comes in with a right lower lobe pneumonia and fever. She has done well on antibiotics and is feeling better. Will change her to oral antibiotics. Her chest x-ray today is much better. She is thinking about going to a swing bed. I will drop off for now,Thanks Current Visit: Yes (3) Diabetes Status: Chronic Assessment and plan: Patient's glucose is up a little on steroids. Her glucose was 218 this morning. Current Visit: Yes Qualifiers: Diabetes mellitus type: type 2 Diabetes mellitus complication status: with neurologic complications Diabetes mellitus complication detail: with polyneuropathy Diabetes mellitus detention insulin use: with termite treater helper use Qualified Code(s): E11.42 - Type 2 diabetes mellitus with diabetic polyneuropathy; Z79.4 - terminal block assembler (current) use of insulin (4) Hypertension Status: Chronic Assessment and plan: The patient has hypertensive cardiovascular disease. Her echo shows good left ventricular function. She appears to be hemodynamically stable. Current Visit: Yes Qualifiers: Hypertension type: essential hypertension Qualified Code(s): I10 - Essential (primary) hypertension (5) GERD (gastroesophageal reflux disease) Status: Acute Assessment and plan: She had an EGD today with dilatation. She is getting a gastric emptying study. She had a C scope today. Overall she is doing better with less GI symptoms. Current Visit: Yes
--- NOTE | 2016-10-19 11:46 | XRay Report ---
XR chest 2V Indication: Pneumonia Comparison: Chest x-ray dated October 14, 2016 Technique: Frontal and lateral views of the chest. Findings: Stable mild cardiomegaly. Bilateral lower lung opacification appears similar to minimally improved from comparison study considering change in technique and is again consistent with pneumonia. Visualized osseous and surrounding soft tissue structures appear grossly unchanged. IMPRESSION: As above. PROCEDURE INTERPRETED AT [facility] DEPARTMENT OF RADIOLOGY Final Report Signed by: Dr Diego Su
[2016-10-19] MEDS: ENOXAPARIN 40 MG/0.4 ML SYRINGE SUBCUT SCH (13:19)
--- NOTE | 2016-10-19 14:30 | Gastrointestinal Progress Note ---
Assessment and Plan (1) Microcytic anemia Status: Acute Assessment and plan: Patient has a microcytic anemia of unclear etiology. We will check to make sure that there is cancer but her main complaint right now to me is dysphasia and so we will look to see if there is any evidence of upper GI cancer and potentially do Savary dilation similar to the 57 [place] were used last dilation on 09/17/15. Will definitely check the small bowel for celiac sprue. This patient had a colonoscopy done by Dr. Garcia as recently as 2013 but this was unremarkable for bleeding source. However, the prep was considered poor and therefore may repeat this evaluation with a better prep. Will strongly consider doing this on 18 October after the weekend. We will proceed with upper endoscopy tomorrow as noted below. Some of the anemia certainly due to chronic disease, will check the patient's reticulocyte count and iron studies to confirm this is iron deficiency as opposed to thalassemia or other process. Again I note that her hematocrit as of 07/22/11 was 40.7%. 10/15/16--the patient's upper endoscopy demonstrated the following: Distal esophageal stricturing status post dilation to 57 [place] by Savary dilator. This patient has a fair amount of retained fluid in the stomach suspicious for gastroparesis, no clear cause for the patient's bleeding but biopsies taken to rule out celiac sprue as well as recheck after treatment of Helicobacter pylori. She did have evidence of a diffuse gastritis. I think we need to get a gastric emptying study done tomorrow to establish that this patient has gastroparesis or not given her diabetes. This will likely be an ongoing problem for her may be adding to her stricturing. I do not see a source for the patient's bleeding, will watch her over the weekend and likely do a colonoscopy again given the acute blood loss on Tuesday since her last colonoscopy had a poor prep. We should be I will see if there is any AVMs present. 10/16/16--Gastric emptying study is about to be done this morning. Not much findings on the upper endoscopy, the patient did get some relief from the dilation, will go ahead and feed her today a regular diet with clear liquids that are going to start tomorrow for an anticipated colonoscopy on Tuesday morning 10/17/16--Gastric emptying study shows slow emptying with a T1 half emptying time of 131 minutes. She might benefit from use of Reglan, will try a small amount of this as she is prepping for colonoscopy to see if she tolerates the medication. Patient was warned about issues of tardive dyskinesia, agitation and sedation. Will use a half dose to see if this benefits her at all. 10/18/16--The patient had a colonoscopy done today, this was felt to be completely normal. This indicates no significant findings on either EGD or colonoscopy. The patient should continue taking her Protonix and Reglan another month or 2 of her hematocrit is still low consider doing capsule endoscopy to completely eliminate the GI tract as a source. 10/19/16--The patient does have a diagnosis of gastritis and gastroparesis. She has done well on the Reglan, I am writing her for a prescription for this as well as some Dexilant as she wants to try something besides the Protonix and Nexium that she has already failed. The prescription is being left in the front of the chart. She should follow-up in my office in another 6 weeks to 2 months to discuss need for capsule endoscopy to further workup her anemia if still present. I have reminded the patient that not all anemia/bleeding is from the GI tract--if capsule endoscopy proves to be negative she may wish to get a bone marrow biopsy and oncology workup. Current Visit: Yes (2) Oropharyngeal dysphagia Status: Acute Assessment and plan: The patient has a history of recurrent difficulties with swallowing. She did not return for her follow-up dilation after being seen in July 14 of this year. We will go ahead and arrange for this now. As mentioned above we will look for evidence of celiac sprue and a potential bleeding source but none was seen on last evaluation. Would definitely keep this patient off of anticoagulation for the present time. Suggest use of Protonix twice daily. 10/15/16--patient was dilated to 57 [place] by single pass Savary and will observe and see if this helps out with her swallowing, interim diet written. 10/16/16--Doing better post dilation. 10/17/16--The patient's ability to swallow is back up to its normal level. 10/18/16--The patient's swallowing is improved post dilation. 10/19/16--She is doing better at this point. A prescription has been written for Dexilant and Reglan. The patient be discharged from the hospital when he see fit. Will sign off the case at this time. Current Visit: Yes (3) GERD (gastroesophageal reflux disease) Status: Acute Assessment and plan: The patient does have some mild reflux symptoms currently being controlled with Protonix as mentioned. 10/15/16--patient is being treated with Protonix at present. No significant element of esophagitis but the patient does have a stricture that was dilated. 10/16/16--Patient does have some mild reflux. This is an ongoing problem. She is on Protonix. Rechecking to see if there is gastroparesis. 10/18/16--Patient is on Protonix-- she does have gastroparesis, she will require both this medication and the Reglan ongoing. 10/19/16--as noted above. Current Visit: Yes (4) Nausea & vomiting Status: Resolved Assessment and plan: This appears to be improved with IV pantoprazole. We will continue to watch, especially after dilation is completed. 10/15/16--Again the patient remains on pantoprazole, no further nausea vomiting yet. We will check her for gastroparesis tomorrow. 10/16/16--Improved. 10/17/16--Back to normal. 10/18/16--This problem is resolved. Current Visit: Yes Gastroenterology - PN: Subj Interval history: No new complaints. Exam (Progress Note) - Constitutional Vitals: Period Temp Pulse Resp BP Sys/Araujo Pulse Ox Last 24 Hr 96.4 F-98.7 F 82-100 20-25 91-123/51-63 95-100 General appearance: no acute distress - Eye Eye exam: Present: EOMI Pupils: Present: RENNY - Respiratory Respiratory exam: Present: clear to auscultation bilaterally - Cardiovascular Cardiovascular exam: Present: regular rate and rhythm - GI/Abdominal GI/Abdominal exam: Present: normal bowel sounds, distended, tenderness (Mild epigastric bilateral upper quadrant pain), soft. Absent: ascites, guarding, rebound - Extremities Exam Extremities exam: Absent: edema - Neurological Exam Neurological exam: Present: alert, oriented X3, CN II-XII intact. Absent: motor sensory deficit - Psychiatric Psychiatric exam: Present: normal affect, normal mood - Skin Skin exam: Present: warm Results - Labs CBC & BMP: 10/18/16 06:02 10/19/16 05:57
[2016-10-19] MEDS: ALUMINUM/MAGNES/SIMETH MAX STR 30 ML UDCUP PO PRN (15:19)
--- NOTE | 2016-10-19 19:54 | Internal Med Progress Note ---
Assessment and Plan (1) Right lower lobe pneumonia Status: Acute Current Visit: Yes (2) Hypertension Status: Chronic Current Visit: Yes Qualifiers: Hypertension type: essential hypertension Qualified Code(s): I10 - Essential (primary) hypertension (3) Diabetes Status: Chronic Current Visit: Yes Qualifiers: Diabetes mellitus type: type 2 Diabetes mellitus complication status: with neurologic complications Diabetes mellitus complication detail: with polyneuropathy Diabetes mellitus buttermaker continuous churn insulin use: with buttermaker continuous churn use Qualified Code(s): E11.42 - Type 2 diabetes mellitus with diabetic polyneuropathy; Z79.4 - buttermaker continuous churn (current) use of insulin (4) Peripheral neuropathy Status: Chronic Current Visit: Yes Qualifiers: Peripheral neuropathy type: polyneuropathy associated with underlying disease Qualified Code(s): G63 - Polyneuropathy in diseases classified elsewhere (5) Gastroparesis Status: Acute Current Visit: Yes Internal Medicine - PN: Subj Interval history: This is a 61 year old female with history of HTN, arthritic changes and chronic pain, DM, peripheral neuropathy, dyslipidemia, who presented to ER with shortness of breath and malaise. She was found to have RLL pneumonia. Chest x- ray shows worsening of infiltrate/consolidation and antibiotics were changed as well as adjustments in breathing treatments. Solumedrol added along with adjustments in insulin coverage. Doing better, but weak. Will adjust Solumedrol. Hyperglycemic surges. Adjusting breathing treatments and Atenolol. She is "jittery" with Xopenex. Repeat chest x-ray in the morning. Doing better. She may be discharged over the weekend as she continues to improve. Chest x-ray improved. ECHO shows normal LVEF and mild diastolic dysfunction; no pulmonary hypertension. She is steadily improving, but is still feeling weak. EGD today uncovered possible gastric delay. Will have gastric emptying study tomorrow. Studies show mild gastroparesis and mild esophageal stricture. She is doing better, but wants more PT/OT and would like to go home to Home Health. Exam (Progress Note) - Constitutional Vitals: Period Temp Pulse Resp BP Sys/Araujo Pulse Ox Last 24 Hr 96.4 F-98.7 F 82-100 18-22 91-123/51-63 92-99 Exam: General appearance: no acute distress - Respiratory Respiratory exam: Present: clear - Cardiovascular Cardiovascular exam: Present: regular rate and rhythm - GI/Abdominal GI/Abdominal exam: Present: soft. Absent: tenderness - Extremities Exam Extremities exam: Absent: edema - Neurological Exam Neurological exam: Present: alert, oriented X3 - Psychiatric Psychiatric exam: Present: normal mood - Skin Skin exam: Present: warm, dry Results - Labs CBC & BMP: 10/18/16 06:02 10/19/16 05:57
[2016-10-19] MEDS: MONTELUKAST 10 MG TABLET PO SCH (21:33)
[2016-10-19] MEDS: SIMVASTATIN 20 MG TABLET PO SCH (21:33)
[2016-10-20] MEDS: IPRATROPIUM 500 MCG/2.5 ML NEB RESP TX SCH ×2 (00:27→07:00)
[2016-10-20] MEDS: LEVALBUTEROL 1.25 MG/3 ML NEB RESP TX SCH ×2 (00:27→07:00)
[2016-10-20] MEDS: BUDESONIDE 0.25 MG/2 ML NEB RESP TX SCH (07:00)
--- NOTE | 2016-10-20 07:55 | Discharge Summary ---
Hospital Course - Hospital Course Hospital Course: This is a 61 year old female with history of HTN, arthritic changes and chronic pain, DM, peripheral neuropathy, dyslipidemia, who presented to ER with shortness of breath and malaise. She was found to have RLL pneumonia. Chest x- ray shows worsening of infiltrate/consolidation and antibiotics were changed as well as adjustments in breathing treatments. Solumedrol added along with adjustments in insulin coverage. Doing better, but weak. Will adjust Solumedrol. Hyperglycemic surges. Adjusting breathing treatments and Atenolol. She is "jittery" with Xopenex. Chest x-ray improved. ECHO shows normal LVEF and mild diastolic dysfunction; no pulmonary hypertension. She is steadily improving, but is still feeling weak. EGD/Studies show mild gastroparesis and mild esophageal stricture. She is doing better, but wants more PT/OT and would like to go home to Home Health. She will be discharged today. Diagnosis - Discharge Diagnosis (1) Right lower lobe pneumonia Status: Acute (2) Hypertension Status: Chronic (3) Diabetes Status: Chronic (4) Peripheral neuropathy Status: Chronic (5) Gastroparesis Status: Chronic Discharge Plan - Discharge Data Disposition: Home Health Service Condition at Discharge: Stable Discharge Diet: diabetic diet, low fat, low cholesterol Activity: as per physical therapy, increase activity as tolerated - Discharge Medications New Alum/Mag/Simeth Max Str Liquid [Mylanta Max Strength Liquid] 30 ml PO Q6H PRN PRN Reason: Dyspepsia Cefuroxime Tab [Ceftin] 500 mg PO BID #14 tablet Docusate Sodium Cap [Colace Cap] 100 mg PO BID capsule Ferrous Sulfate Tab [Feosol Original Tab] 325 mg PO BID tablet Levalbuterol Neb [Xopenex Neb] 1.25 mg RESP TX RT Q6H #120 Montelukast Tab [Singulair Tab] 10 mg PO BEDTIME #30 tablet predniSONE TAB [PredniSONE] 10 mg PO DAILY #10 tablet Atenolol [Tenormin] 75 mg PO DAILY #30 tablet Ipratropium Neb [Atrovent Neb] 500 mcg RESP TX RT Q6H #120 Continue sitaGLIPtin [Januvia] 100 mg PO DAILY Cetirizine Tab [ZyrTEC Tab] 10 mg PO BID HydrOXYzine PAMOATE CAP [Vistaril Cap] 25 mg PO TID PRN PRN Reason: Anxiety Linagliptin [Tradjenta] 5 mg PO QAM Folic Acid Tab 0.4 mg PO DAILY Insulin Aspart [NovoLOG FlexPen] 20 unit SUBCUT TID Levothyroxine Tab [Synthroid Tab] 100 mcg PO QAM Insulin Glargine,Hum.rec.anlog [Lantus SoloStar] 25 unit SUBCUT QPM Fluoxetine HCl 40 mg PO BID Cetirizine HCl [Cetirizine Tab] 10 mg PO DAILY Multivit-Min/FA/Lycopen/Lutein [Centrum Silver Tablet] 1 each PO DAILY Simvastatin 20 mg PO QPM Pregabalin [Lyrica] 150 mg PO TID Cyanocobalamin (Vitamin B-12) [Vitamin B-12] 1,000 mcg PO DAILY Insulin Glargine,Hum.rec.anlog [Lantus SoloStar] 45 unit SUBCUT QAM Esomeprazole Magnesium [Nexium] 40 mg PO DAILY Celecoxib [Celebrex] 200 mg PO BID Discontinued Spironolactone [Aldactone] 25 mg PO BID Atenolol [Atenolol] 1 tablet PO DAILY Potassium Chloride 20 meq PO DAILY Amoxicillin Cap/Tab 500 mg PO Q6H - Follow Up or Referral Follow Up: Allyson Vasquez DO [Physician] - Dean Vasquez MD [Physician] - - Forms/Instructions Additional Discharge Instructions: Follow up with Dr. Kranthi Vasquez at clinic within 1-2 weeks, and follow up with Dr. Jefry Vasquez at clinic within 2-3 weeks. Repeat chest x-ray at [facility] at Dr. Jefry Vasquez's clinic visit. She is to have nebulized breathing treatments at home, and home health PT/OT for generalized weakness. Exam - Constitutional Vitals: Period Temp Pulse Resp BP Sys/Araujo Pulse Ox Last 24 Hr 96.9 F-98.3 F 67-91 18-22 104-135/54-74 91-100 Exam: General appearance: no acute distress - Respiratory Respiratory exam: Present: clear - Cardiovascular Cardiovascular exam: Present: regular rate and rhythm - GI/Abdominal GI/Abdominal exam: Present: soft. Absent: tenderness - Extremities Exam Extremities exam: Absent: edema - Neurological Exam Neurological exam: Present: alert, oriented X3 - Psychiatric Psychiatric exam: Present: normal mood - Skin Skin exam: Present: warm, dry Discharge Results Labs on day of discharge: Labs from last 24 hours 10/20/16 10/19/16 10/19/16 07:07 19:24 15:31 POC Glucose 194 H 232 H 120 H 10/19/16 11:47 POC Glucose 188 H DS: Provider Date of admission: 10/09/16 21:48 Primary care physician: . No PCP Attending physician on admission: Allyson Vasquez DO Consults: 10/09/16 22:33 Consult to Case Mgmt/Social Srvs [CONS] Routine Reason for Case Mgmt/Social Srvs: Discharge Planning Consult Comment: swing bed 10/11/16 12:59 Consult to Dietitian [CONS] Routine Reason for Dietitian: Diet Recommendations Other Consult Comment: diabetic diet and education, pt states cant chew meat 10/11/16 18:48 Consult to Physician [CONS] Routine Comment: worsening pneumonia over weekend Consulting Provider: Dean Vasquez Person Notified: perez Date Notified: 10/12/16 Time Notified: 08:50 10/12/16 19:28 Consult to Physical Therapy [CONS] Routine Reason for Physical Therapy: Weakness Start Therapy: Tomorrow 10/14/16 21:35 Consult to Anesthesiology [CONS] Routine Consulting Provider: Reason for Anesthesiology: Pre-op Clearance 10/19/16 14:53 Consult to Case Mgmt/Social Srvs [CONS] Routine Reason for Case Mgmt/Social Srvs: Discharge Planning Consult Comment: home health, please get nebulizer Discharging clinician: Allyson Vasquez DO Expected date of discharge: 10/20/16
[2016-10-20] MEDS: PREGABALIN 75 MG CAPSULE PO SCH (09:26)
[2016-10-20] MEDS: FLUoxetine 20 MG CAPSULE PO SCH (09:26)
[2016-10-20] MEDS: sitaGLIPtin 100 MG TABLET PO SCH (09:27)
[2016-10-20] MEDS: CYANOCOBALAMIN 500 MCG TABLET PO SCH (09:27)
[2016-10-20] MEDS: MULTIVITAMIN (CENTRUM) TABLET PO SCH (09:27)
[2016-10-20] MEDS: FERROUS SULFATE 325 MG TABLET PO SCH (09:27)
[2016-10-20] MEDS: FOLIC ACID 0.4 MG TABLET PO SCH (09:28)
[2016-10-20] MEDS: ATENOLOL 50 MG TABLET PO SCH (09:28)
[2016-10-20] MEDS: CETIRIZINE 10 MG TABLET PO SCH (09:28)
[2016-10-20] MEDS: LEVOTHYROXINE 100 MCG TABLET PO SCH (09:28)
[2016-10-20] MEDS: CEFUROXIME 500 MG TABLET PO SCH (09:28)
[2016-10-20] MEDS: DOCUSATE SODIUM 100 MG CAPSULE PO SCH (09:29)
[2016-10-20] MEDS: NYSTATIN 500,000 UNIT/5 ML UDCUP SWISH/SWAL SCH (09:29)
[2016-10-20] MEDS: PANTOPRAZOLE 40 MG TABLET PO SCH (09:29)
[2016-10-20] MEDS: predniSONE 20 MG TABLET PO SCH (09:29)
[2016-10-20] MEDS: INSULIN LISPRO 100 UNIT/ML SUBCUT SCH ×4 (09:30→12:18)
[2016-10-20] MEDS: INSULIN GLARGINE 100 UNIT/ML SUBCUT SCH (09:33)
[2016-10-20] MEDS: ENOXAPARIN 40 MG/0.4 ML SYRINGE SUBCUT SCH (11:34)
[2016-10-20 11:41] VITALS: BP 124/71
== END 2016-10-20 12:15 | disposition home health service (06) | DRG 195 ==
LOC: EDBD → EDUNIT# → N.ED 19:04 → N.EDINP 21:48 → N.2E 23:07
PROVIDERS: ADMIT Internal Medicine; ATTEND Internal Medicine